=== PATIENT | male | born 1950 | race Caucasian/White ===

== ENCOUNTER 2018-05-04 06:10 | Inpatient (IN) ==
[2018-05-04] MEDS ORDERED: Albuterol 2.5 MG/3 ML NEBULIZER IH ONE (06:33)
[2018-05-04] MEDS ORDERED: CeFAZolin Syr 2,000MG/20 ML 2,000 MG/20 ML SYRINGE IVPB ONE (06:33)
[2018-05-04] MEDS ORDERED: Albuterol 2.5 MG/3 ML NEBULIZER ONE (06:37)
[2018-05-04] MEDS ORDERED: Ringers Solution, Lactated 1,000 ML IVC SCH (06:45)
[2018-05-04] MEDS ORDERED: *HR* FentaNYL (PF) 100 MCG/2 ML VIAL ONE ×2 (07:04→13:57)
[2018-05-04] MEDS ORDERED: *HR* Midazolam HCl 2 MG/2 ML VIAL ONE (07:04)
[2018-05-04] MEDS ORDERED: *HR* Rocuronium Bromide 50 MG/5 ML VIAL ONE (07:05)
[2018-05-04] MEDS ORDERED: *HR* Succinylcholine 200 MG/10 ML VIAL IVP ONE (07:05)
[2018-05-04] MEDS ORDERED: Lidocaine -MPF 2% 2 ML VIAL ONE (07:05)
[2018-05-04] MEDS ORDERED: *HR* Phenylephrine 10 MG/ML VIAL ONE (07:05)
[2018-05-04] MEDS ORDERED: *HR* EPINEPHrine 1 MG/ML AMPUL ONE ×2 (07:05→17:16)
[2018-05-04] MEDS ORDERED: *HR* Propofol 200 MG/20 ML VIAL IVP ONE (07:05)
[2018-05-04] MEDS ORDERED: Heparin 1,000 UNITS/500 mL 500 ML ONE (07:12)
[2018-05-04] MEDS ORDERED: LIDOCAINE 1% PF 2 ML AMPUL ONE (07:15)
[2018-05-04] MEDS ORDERED: Heparin 1,000 UNITS/500 mL 1,000 ML ONE (07:16)
[2018-05-04] MEDS ORDERED: *HR* Remifentanil 2 MG VIAL IVP ONE (07:17)
--- NOTE | 2018-05-04 07:25 | Anesthesia Evaluation PreOp ---
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 Other Medical History: Hepatic (elevated LFT's, alcohol abuse) Anesthesia History: No Prior Anesthetic Complications Alcohol Use: occasionally Drug use: none Medications and Allergies Cyanocobalamin (Vitamin B-12) [Vitamin B12] 1,000 mcg PO DAILY 03/26/18 [History] Folic Acid 1 mg PO DAILY 03/26/18 [History] Potassium Chloride [K-Tab ER] 20 meq PO DAILY 03/26/18 [History] Ergocalciferol (VITAMIN D2) [Vitamin D2] 50,000 unit PO WE 05/04/18 [History] Allergy/AdvReac Type Severity Reaction Status Date / Time Sulfa (Sulfonamide Allergy Rash Verified 05/04/18 07:08 Antibiotics) - Meds/Allergy Pre-op Review Medications Reviewed: Yes Allergies Reviewed: Yes Beta Blockers on Current Med List: No Anesthesia Results - Labs Laboratory Tests 04/14/18 04/14/18 04/14/18 13:58 13:58 13:58 WBC 7.3 Hgb 14.0 Hct 39.3 Plt Count 245 PT 9.9 INR 0.9 APTT 30.6 Sodium 134 L Potassium 3.9 Chloride 99 Carbon Dioxide 25 BUN 6 L Creatinine 0.98 Est GFR ( Amer) > 60 Est GFR (Non-Af Amer) > 60 BUN/Creatinine Ratio 6 Glucose 83 Calculated Osmolality 275 L - Imaging EKG: report reviewed, image reviewed (SINUS TACHYCARDIA WITH OCCASIONAL SUPRAVENTRICULAR PREMATURE COMPLEXES RIGHT ATRIAL ENLARGEMENT POSSIBLE LEFT ATRIAL ENLARGEMENT NONSPECIFIC ST ABNORMALITIES) Additional studies: TTE: Impressions: LVEF 55-60%. Mild concentric left ventricular hypertrophy. Moderate left ventricular diastolic dysfunction. Normal right ventricular structure and function. Unable to estimate RVSP due to lack of TR jet. No significant valvular dysfunction. Anesthesia Exam Last Vital Signs Temp 97.6 F 05/04/18 06:30 Pulse 67 05/04/18 06:30 Resp 18 05/04/18 06:55 BP 120/87 05/04/18 06:55 Pulse Ox 99 05/04/18 06:55 Weight: 46 kg NPO (# of Hours): > 8 hrs - HEENT Pupil (Motor): Pupils equal, EOMI Mallampati: II Teeth: Edentulous Denture Type: Upper: Complete, Lower: Complete Oral Opening: Greater than 3 - BULLET LUBRICANT MIXER LOC: Oriented - Cardiac Rhythm: Regular Murmur: None - Pulmonary Breath Sounds: bilateral Clear Respiratory Effort: Symmetrical Anesthesia Assess/Plan ASA Score: 3 Level of consciousness: Cooperative Anesthetic Plan: General Monitoring Plan: Standard Monitors, A-Line Recovery Plan: PACU
--- NOTE | 2018-05-04 07:35 | History & Physical Report ---
Date of Encounter: 05/04/18 Time of Encounter: 07:20 24 Hour HP Update - Instructions Instructions: If the History and Physical is less than 30 days old and was completed prior to A.M. admission and or procedure and has NOT been updated on calendar day of procedure please complete this update prior to performing procedure. - Update Patient reports changes in Medical Condition: No Changes in examination, assessment, or condition: No Changes in Medication: No Preop tests/diagnostics Reviewed: Yes Surgery Remains Indicated: Yes Consent for Planned Operative Procedure(s) Verified: Yes - Pre-Operative Checklist Preoperative Checklist Indicated: Yes Prophylactic Antibiotic Ordered: Yes Home Medications Include Beta Lorenzo: No Beta Lorenzo Taken Today (Day of Surgery): No Beta Lorenzo Taken Yesterday (Day Prior to Surgery): No Is VTE Prophylaxis Indicated?: Yes
[2018-05-04] MEDS ORDERED: ceFAZolin 1,000 MG, Sodium Chloride IRRigation 1,000 ML IR ONE (07:45)
[2018-05-04] MEDS ORDERED: Albumin Human 5% 25.0 GM/500 ML VIAL ONE ×2 (08:12→12:14)
--- NOTE | 2018-05-04 08:57 | Anesthesia Procedures ---
Date of Encounter: 05/04/18 Time of Encounter: 07:50 Procedures: Anesthesia - Nerve Block Allergies/Adv Reactions: Allergy/AdvReac Type Severity Reaction Status Date / Time Sulfa (Sulfonamide Allergy Rash Verified 05/04/18 07:08 Antibiotics) Sedation: Fentanyl (mcg): 50
--- NOTE | 2018-05-04 08:59 | Anesthesia Procedures ---
Date of Encounter: 05/04/18 Time of Encounter: 07:50 Procedures: Anesthesia - Arterial Line Consent obtained: verbal consent Time out performed: Yes Sedation: Versed (mg): 1 (as charted on anesthesia paperwork) Sedation: Fentanyl (mcg): 50 Local Anesthetic: Lidocaine 1% Size (Gauge): 20 Length (inches): 1 3/4 Technique Used: sterile prep, direct puncture technique Post-Procedure: line taped into place, dry sterile dressing placed Patient tolerated procedure: well, no complications Complications: none Site: Radial L Vitals: see anesthesia paperwork Comments: placed by Son VARGAS
[2018-05-04] MEDS ORDERED: Ondansetron 4 MG/2 ML VIAL IVP ONE (09:00)
[2018-05-04] MEDS ORDERED: *HR* OxyCODONE Immed Rel 5 MG TABLET PO PRN (09:00)
[2018-05-04] MEDS ORDERED: Dexamethasone 4 MG/ML VIAL ONE (09:01)
[2018-05-04] MEDS ORDERED: *HR* Heparin 5,000 UNIT/ML VIAL ONE (10:15)
[2018-05-04 12:10] LABS: ABG Base Excess -8 mEq/L (-2 to 3); ABG Chloride 104 mEq/L (98-107); ABG Glucose 86 mg/dL (60-95); ABG HCO3 20 mEq/L (21-27); ABG Ionized Calcium 1.18 mmol/L (1.15-1.35); ABG Oxygen Saturation 100 % (95-98); ABG PCO2 45 mmHg (35-45); ABG PH 7.24 pH Units (7.32-7.45); ABG PO2 217 mmHg (85-104); ABG TCO2 21 mEq/L (20-26)
[2018-05-04] MEDS ORDERED: *HR* PHENYLEPHRINE 1,000 MCG/10 ML SYRINGE IVP ONE (12:40)
--- NOTE | 2018-05-04 13:33 | Operative Note ---
Date of procedure: 05/04/18 Pre-op diagnosis: PAD/claudication Post-op diagnosis: same Procedure: left femoral-BK popliteal bypass with 6 mm PTFE Distaflo graft left common, external, and internal iliac artery thromboendarterectomy left common femoral, profunda, and SFA thromboendarterectomy Complications: 0 Anesthesia: GETA Surgeon: Shay Mcgill Co-Surgeon: Stu Olivarez Was there an client account assistant present: No Estimated blood loss (cc): 400 Specimen: 0 Condition: stable Disposition: PACU Procedure in Detail: History Dieter Lucero is a 68-year-old white male with multiple ongoing medical problems including alcohol and tobacco abuse as well as cachexia. He has severe left lower extremity occlusive disease with decreased ankle brachial index and severe lifestyle limiting claudication. An angiogram had been performed recently and unfortunately an endovascular approach was not feasible for this patient due to his diffuse disease. Therefore he now comes to the operating room and an attempt to perform direct arterial reconstruction for his occlusive disease. Procedure After informed consent was obtained the patient was taken to the operating room. General endotracheal anesthesia under arterial line pressure monitoring was done performed. The abdomen and pelvis both groins and the left lower extremity were then sterilely prepped and draped. A timeout protocol was observed. A 2 surgical approach was used for this procedure due to the patient's comorbid conditions. This was also done in an attempt to reduce the anesthesia time and intraoperative blood loss as well as to assist with complex intraoperative decision making. Dissections were then made beginning at the left groin and a second incision at the left below-knee popliteal area. Dissection of the groin revealed an occluded left common femoral artery that appeared distended and mildly discolored. It should be noted that the angiogram performed recently there was spontaneous flow through this area and so therefore the patient was now found to have had an acute to subacute thrombosis of the left femoral system. Dissection was made all the greater saphenous vein through interrupted incisions. The vein was found to be adequate in the thigh and knee but in the calf area the vessel had a trifurcation and was too small to be used. Therefore synthetic graft was necessary. Dissection of the [id number] popliteal artery revealed an area of plaque proximally but distally above the tibial bifurcation areas the vessel was soft and usable for anastomosis. A subsartorial tunnel was then created. Heparin was administered to the patient and a dose of 4000 units. As the distal anastomosis was being constructed through the left calf incision using 6-0 Prolene to anastomose the 6 mm PTFE Distaflo graft the common femoral artery was opened simultaneously. This revealed a complex plaque with acute and subacute thrombus as well as chronic atherosclerotic changes diffusely through the vessel. This extended into the common femoral and external iliac as well as the superficial femoral and profunda femoris artery. The artery was opened for the entire length of the common femoral artery with exposure up on into the external iliac artery and distally into the proximal aspect of the superficial femoral artery. A formal endarterectomy and thrombectomy was performed of the common femoral artery. A dense and calcific plaque was removed as well as the subacute thrombus. An endarterectomy was also performed of the proximal aspect of the superficial femoral artery. A 4 Czech Timothy catheter was passed through the superficial femoral artery. This vessel demonstrated chronic atherosclerotic material as well as subacute clot. Spontaneous bleeding was achieved through the superficial femoral artery. Attention was then directed to the profunda femoris artery. This vessel was then endarterectomized at its orifice and proximal area. Again very dense and thick calcific plaque was present. Once this was removed excellent retrograde bleeding was achieved. This was back flushed with heparinized saline and then reclamped. Attention was then directed to the proximal common femoral artery. The arteriotomy was extended and the endarterectomy was performed up into the external iliac artery. Again a large amount of atherosclerotic material and clot was found. A 4 Czech Timothy catheter was passed retrograde. A large amount of thick dense fresh clot was removed. Orbita catheter would not advance into the aorta and pulsatile flow was not achieved. Therefore further iliac surgery was necessary. A left flank or transplant incision was then made in order to expose the common iliac artery and iliac bifurcation. Dissection was carried down into the retroperitoneal space in order to identify the structure. The external iliac artery had no pulse told there was a pulse in the common iliac artery. There was a dense rim of calcific plaque in the distal common iliac artery with extension into the internal iliac and external iliac artery. After control was obtained of this left iliac system a direct arteriotomy was made on the distal common iliac artery and extending into the proximal external iliac artery. This would allow access to all 3 vessels including the internal iliac artery. A formal endarterectomy was then performed. Again this was a dense and thick calcific plaque present. The orifice of the internal iliac as well as the proximal portion of this artery was endarterectomized with backbleeding achieved. More fresh clot and atherosclerotic material was removed from the proximal left external iliac artery. Excellent pulsatile flow was achieved after endarterectomy through the left common iliac artery. As the vessel was relatively generous in size the arteriotomy was closed with a direct longitudinal closure and no patch was necessary. With this done the wound was packed and the clamps were removed into the distal aspect of the external iliac so that pulsatile flow could be restored into the epigastric area and into the internal iliac artery on the left side. With this done the proximal anastomosis of the femoral popliteal bypass graft was performed over a very long area of the endarterectomized common femoral artery. The synthetic graft was used as the patch was sewn into position in an end-to-side fashion using 6-0 Prolene suture. After appropriate backbleeding and flushing the grafts were opened sequentially. There opened first into the internal iliac artery and then into the profunda femoris artery and then into the popliteal artery. Patient had significant amount of oozing due to the endarterectomy sites and but this was controlled with additional sutures and topical agents. Excellent pulsatile flow was achieved from the iliac system into the femoral-popliteal bypass graft and then into the [id number] popliteal artery. Doppler signals were identified at the dorsalis pedis and posterior tibial artery at the left ankle. All wounds were then irrigated and hemostasis was achieved. The wounds were then closed in layers using absorbable suture after infiltration with Marcaine. All the vein harvest sites were also closed and it should be noted that the greater saphenous vein was not harvested or ligated during this procedure. Dry sterile dressings were then applied. The patient was extubated in the operating room. He received 1 unit of blood intraoperatively. He was taken from the operating room to the recovery room in stable condition. There were no intraoperative complications.
[2018-05-04] MEDS: *HR* Morphine 2 MG/ML SYRINGE IVP PRN ×3 (14:18→14:38)
[2018-05-04] MEDS ORDERED: *HR* HYDROmorphone (PF) 1 MG/ML SYRINGE IVP PRN (14:55)
[2018-05-04 16:10] LABS: Hematocrit 30.8 % (37.5-50.1); Hemoglobin 10.9 g/dL (12.9-16.9)
--- NOTE | 2018-05-04 16:33 | Anesthesia Evaluation Post Op ---
Date of Encounter: 05/04/18 Time of Encounter: 16:33 - Vital Signs Vital Signs: Last Vital Signs Temp 98.6 F 05/04/18 15:45 Pulse 72 05/04/18 16:05 Resp 16 05/04/18 16:05 BP 115/85 05/04/18 16:05 Pulse Ox 98 05/04/18 16:05 - Lungs Lungs: Clear Ascult./Percussion - Airway Airway: Non-obstructed - Cardiovascular Regular Rate - Mental Status Mental Status: Alert & Oriented, Answers Appropriately - Pain Pain Scale: 4 - Nausea Vomiting Nausea Vomiting: Not Present - Hydration Hydration: NPO - Discharge PostOp Status: Transfer Patient to floor
[2018-05-04] MEDS ORDERED: Naloxone 0.4 MG/ML INJ IVP PRN (16:42)
[2018-05-04] MEDS ORDERED: Ondansetron 4 MG/2 ML VIAL IVP PRN (16:42)
[2018-05-04] MEDS ORDERED: Acetaminophen 325 MG TABLET PO PRN (16:42)
[2018-05-04] MEDS: *HR* HYDROcodone/Acet 5/325 mg TABLET PO PRN (18:20)
[2018-05-04 18:25] LABS: Hematocrit 33.4 % (37.5-50.1); Hemoglobin 11.5 g/dL (12.9-16.9)
[2018-05-05 05:57] LABS: Basophils % 0.2 %; Hematocrit 28.8 % (37.5-50.1); Hemoglobin 10.2 g/dL (12.9-16.9); Immature Granulocytes % 0.4 % (0-4); Lymphocytes # 1.3 K/mcL (0.6-4.6); Lymphocytes % 15.4 %; Mean Corpuscular HGB Conc 35.4 g/dL (31.6-35.5); Mean Corpuscular Hemoglobin 33.2 pg (28.0-33.3); Mean Platelet Volume 10.5 fL (9.4-12.4); Monocytes # 0.8 K/mcL (0.0-1.3); Monocytes % 9.4 %; Neutrophils # 6.4 K/mcL (1.6-8.9); Platelet Count 120 K/mcL (140-400); Red Blood Count 3.07 M/mcL (4.19-5.50); Segmented Neutrophils % 74.6 %
[2018-05-05 06:08] LABS: Mean Corpuscular Volume 93.8 fL (83.0-100.0)
[2018-05-05 06:14] LABS: BUN/Creatinine Ratio 11 (6-26); Blood Urea Nitrogen 9 mg/dL (8-23); Calcium 8.8 mg/dL (8.6-10.3); Carbon Dioxide 25 mEq/L (23-29); Chloride 101 mEq/L (98-107); Glucose 119 mg/dL (70-105); Osmolality,Calculated 274 (280-300); Potassium 3.9 mEq/L (3.5-5.1); Sodium 132 mEq/L (136-145); eGFR For Non-African Americans > 60 (> 60)
--- NOTE | 2018-05-05 07:09 | Operative Note ---
Date of procedure: 05/04/18 Pre-op diagnosis: Peripheral vascular disease with disabling claudication Post-op diagnosis: same Procedure: 1. Left common femoral to below knee popliteal artery bypass with 6mm Distaflo PTFE graft. 2. Left common, external and internal iliac artery thromboendarterectomy. 3. Left common, deep and superficial femoral endarterectomy. 4. Left popliteal endarterectomy. Complications: None Anesthesia: GETA Surgeon: Stu Olivarez Co-Surgeon: Shay Mcgill Was there an nutritional assistant present: No Estimated blood loss (cc): 400 Specimen: None Condition: stable Disposition: PACU Procedure in Detail: Indications: The patient is a 68-year-old male who was found to have peripheral vascular disease with disabling claudication. He was found to have a left superficial femoral artery occlusion. Procedure: The patient was identified in the preoperative area. The risks, benefits, and alternatives of the procedure were discussed. All questions were answered. The patient was taken to the operating room and placed in supine position on the operating room table. After the induction of general endotracheal anesthesia, he was cleaned and draped in normal sterile fashion. A two surgeon approach was utilized for this procedure in order to minimize anesthetic time and the risks for complications due to the patients comorbid conditions. In addition, a two surgeon approach was used for intraoperative decision making. An oblique incision was made over the left groin sharply. Hemostasis was obtained with electrocautery. Through a process of blunt, sharp, and electrocautery dissection, the left femoral vessels were dissected circumferentially and surrounded with vessel loops. An incision was made on the left medial calf sharply. Hemostasis was obtained with electrocautery. Through a process of blunt, sharp, and electrocautery dissection, the left below-knee popliteal artery was dissected proximally and distally and surrounded with vessel loops. Multiple skin incisions were made along the thigh between the two incisions along the saphenous vein. The vein was noted to have multiple branches and was small in caliber distally. The vein was determined to be inadequate for bypass. A 6 mm ring reinforced Distaflo PTFE graft was selected for bypass. A graft was tunneled between the popliteal and femoral incisions. The patient received 5000 units of heparin intravenously. Additional heparin was given throughout the case to maintain adequate anticoagulation. The popliteal vessels were occluded and a longitudinal arteriotomy was made in the popliteal artery. The distal end of the graft was sutured in place with a running 6-0 Prolene, but not tied. Heparinized saline was infused into the lumen. Tenision was applied to the femoral vessel loops. An arteriotomy was made in the common femoral artery and the graft was cut to fit the defect. The graft was anastamosed with a running 6-0 Prolene. The vessels were flushed through the graft and heparin was infused into the lumen. The graft was clamped with an atraumatic clamp. Thrombin and gelfoam were used at the proximal anastamosis. The distal arterial anastomosis suture line was completed. Prior to completing the closure, the popliteal vessels were flushed and reoccluded. Heparinized saline was infused into the lumen. The anastamosis was tied and then flow was restored. Polyphasic signals were noted distal to the distal anastomosis as well as at the posterior tibial artery. Wounds were irrigated with antibiotic-containing saline. Thrombin and gelfoam were used to aid in hemostasis. Meticulous hemostasis was obtained throughout the wound with electrocautery. Wounds were reapproximated with layers of 2-0 and 3-0 Vicryl. Skin was reapproximated with 4-0 Vicryl. Sterile dressing was applied. The patient was extubated and taken to recovery room in stable condition.
[2018-05-05] MEDS: *HR* HYDROcodone/Acet 5/325 mg TABLET PO PRN ×2 (07:31→16:00)
[2018-05-05] MEDS: Folic Acid 1 MG TABLET PO SCH (08:16)
[2018-05-05] MEDS: Cyanocobalamin (B-12) 1,000 MCG TABLET PO SCH (08:16)
--- NOTE | 2018-05-05 09:46 | Discharge Summary ---
Date of Encounter: 05/06/18 Time of Encounter: 10:26 - Discharge Diagnosis (1) PAD (peripheral artery disease) Priority: Primary Status: Acute Comments: Severe left lower extremity arterial disease with diffuse iliofemoral ather osclerosis and thrombosis. (2) Tobacco abuse Priority: Secondary Status: Chronic Comments: Chronic tobacco abuse (3) Alcohol abuse Priority: Secondary Status: Chronic Comments: Chronic alcohol abuse (4) Protein calorie malnutrition Priority: Secondary Status: Chronic Comments: Chronic and severe malnutrition and weight loss Qualifiers: Protein-calorie malnutrition severity: severe Qualified Code(s): E43 - Unspecified severe protein-calorie malnutrition - Hospital Course Hospital course: Mr. Lucero is a 68 year old male With severe peripheral vascular occlusive disease. The patient has multiple other chronic ongoing medical problems that include tobacco abuse, alcohol abuse, and severe protein calorie malnutrition. Angiographically he was found to have severe and diffuse disease. From the time of his antrum to the time of his operation he went on to thrombose his left iliac system and common femoral artery. This led to an extended and complicated surgery on [id number]. The patient required a left common iliac, internal iliac, and external iliac thromboendarterectomy as well as a left common femoral, left profunda femoris, and left superficial femoral artery thromboendarterectomy, and a left femoral to below the knee popliteal artery bypass graft with 6 mm PTFE. The patient's greater saphenous vein was found to be inadequate at the distal reaches of the calf area so that the vein was inadequate to use as a conduit. The patient tolerated the procedure well. He required 1 unit of blood transfusion. He was hemodynamically stable. The left foot became warm and pink. Excellent Doppler signals that are triphasic at the dorsalis pedis and posterior tibial level. The foot itself was dramatically improved in regards to its color and temperature from the baseline evaluation and as compared to the right foot. The patient complained of significant discomfort in the leg on weightbearing which required an additional day in the hospital. Due to his overall medical condition he will require further assistance at home and we will arrange for outpatient physical therapy as well as a walker. The patient was given instructions in regards to his diet and medications and activities as well as wound care. It was emphasized to him that he needs to walk on a regular basis at home. He is initially to use his walker and then to graduate back to his cane which he was using prior to his operation. Also due to his protein calorie malnutrition he was recommended to use and sure for nutritional supplement and he will also be given a prescription for Megace 400 mg a day to help stimulate his appetite. Finally he will be given a prescription for [place] for postoperative pain management. All questions were answered prior to his discharge. Time spent discussing smoking cessation with patient: 3 to 10 minutes - Time Spent with Patient Total time spent providing and/or coordinating discharge services: - Discharge Medications Prescriptions: HYDROcodone/Acet 5/325 mg [[place] 5-325 mg] 1 tab PO Q6HR PRN 7 Days #10 tablet PRN Reason: Moderate Pain Megestrol Acetate [Megace] 400 mg PO DAILY #30 udc Home Medications: Cyanocobalamin (Vitamin B-12) [Vitamin B12] 1,000 mcg PO DAILY 03/26/18 [History] Folic Acid 1 mg PO DAILY 03/26/18 [History] Potassium Chloride [K-Tab ER] 20 meq PO DAILY 03/26/18 [History] Ergocalciferol (VITAMIN D2) [Vitamin D2] 50,000 unit PO WE 05/04/18 [History] HYDROcodone/Acet 5/325 mg [[place] 5-325 mg] 1 tab PO Q6HR PRN 7 Days #10 tablet 05/06/18 [Rx] Megestrol Acetate [Megace] 400 mg PO DAILY #30 udc 05/06/18 [Rx] Allergies/Adverse Reactions: Allergy/AdvReac Type Severity Reaction Status Date / Time Sulfa (Sulfonamide Allergy Rash Verified 05/04/18 07:08 Antibiotics) Date of admission: 05/04/18 16:53 Primary care physician: Yamini Harrison MD Consults: 05/04/18 17:25 Consult to Nutrition [CONS] Routine Comment: Consulting Provider: NUTRITION Reason for Dietary Consult: PO Supplementation Diet Education Procedure(s) Performed: Extensive Left iliac and femoral endarterectomy/thrombectomy Left femoral to [id number] popliteal artery bypass graft with PTFE Discharging clinician: Shay Mcgill Anticipated date of discharge: 05/06/18 Exam Vital Signs, Last 4 Hours Temp Pulse Resp BP Pulse Ox 05/05/18 07:34 97.8 F 75 18 118/82 97 General: Present: Conversant, No Apparent Distress HEENT: Present: Atraumatic Neck: Absent: JVD Cardiac: Present: Reg Rate and Rhythm Neuro: Present: Alert and responsive, No focal deficits noted, Cranial nerves grossly intact Abdomen: Present: Soft Vascular: Present: Color/Temperature (Color and temperature of left foot is improved following bypass grafting.), Surgical incisions (Surgical incisions are clean and dry.), Other (Patient has Doppler signals at the dorsalis pedis and posterior tibial artery at the left ankle following surgery.) Skin: Present: No rashes noted on visualized skin - Patient Status Disposition: Home Health Service Condition: Fair Functional capacity at discharge: uses cane/walker Overall status at discharge: patient is not back to baseline - Discharge Instructions Follow Up With: Yamini Harrison MD [Primary Care Provider] - 05/11/18 11:00 am Shay Mcgill MD [Partnered Physician] - 05/24/18 8:45 am Additional Instructions: Keep surgical sites dry for total of 5 days following surgery Patient may ambulate inside and outside. Patient may use stairs as tolerated. Use walker as needed and then progressed to the use of cane. No driving. Resume usual home medications. Begin Megace 400 mg a day to help stimulate appetite Supplement meals with Ensure Elevate left lower extremity while seated. Using incentive spirometer 10 times an hour while awake for the next 2 weeks then discard the spirometer. Remove dressing from left lower extremity on Thursday. - Diet and Activity Activity: increase activity as tolerated Diet: other (High-protein diet with ensure supplements)
[2018-05-05] MEDS: Megestrol Acetate 400 MG/10 ML UDC PO SCH (14:18)
--- NOTE | 2018-05-05 16:58 | Vascular/Endovas Progress Note ---
Date of Encounter: 05/05/18 Time of Encounter: 16:55 - Assessment and plan (1) PAD (peripheral artery disease) Current Visit: Yes Status: Acute Patent left lower extremity endarterectomies and thrombectomies and bypass graft. Dramatic improvement of perfusion of left lower extremity. Patient will need extra time for mobilization. He is clearly not ready to be discharged today. Therefore we'll continue with supportive therapy including physical and occupational therapy as well as nutritional consultation. Possible discharge tomorrow pending his improvement with weightbearing and ambulation. Patient is hemodynamically stable. (2) Tobacco abuse Current Visit: Yes Status: Chronic History of chronic tobacco abuse. (3) Alcohol abuse Current Visit: Yes Status: Chronic (4) Protein calorie malnutrition Current Visit: Yes Status: Chronic Patient seen in consultation with nutritional therapy today. Recommendations made made. Will start Megace today to help stimulate appetite. Qualifiers: Protein-calorie malnutrition severity: severe Qualified Code(s): E43 - Unspecified severe protein-calorie malnutrition - Subjective Interval history: Patient is postoperative day 1 from an extensive iliac and femoral endarterectomy and thrombectomy and a left femoral to [id number] popliteal artery bypass graft with 6 mm PTFE. The patient complains of pain in the surgical sites. He has had difficulties with weight bearing today and has not been able to do any walking. He was seen by nutrition in consultation for his protein calorie malnutrition which is a chronic problem for him. Vital Signs, Last 4 Hours Temp Pulse Resp BP 05/05/18 16:11 98.2 F 82 18 108/81 - Physical Examination General: Present: Conversant, No Apparent Distress HEENT: Present: Atraumatic, Other (Facial and neck muscle wasting) Neck: Absent: JVD Cardiac: Present: Reg Rate and Rhythm, Normal S1 and S2 Lungs: Present: Normal Breath Sounds Neuro: Present: Alert and responsive, No focal deficits noted Vascular: Present: Color/Temperature (Left foot is warm and pink.), Surgical incisions (Dry dressings cover left sided surgical incisions.), Other (Excellent Doppler signals over the left dorsalis pedis and posterior tibial artery.). Absent: Edema Abdomen: Present: Soft, Non-tender Skin: Present: No rashes noted on visualized skin Results 05/05/18 05:40 05/05/18 05:40 Lab Results, Last 24 hours 05/04/18 05/05/18 05/05/18 17:51 05:40 05:40 WBC 8.5 Hgb 11.5 L 10.2 L Hct 33.4 L 28.8 L Plt Count 120 L Sodium 132 L Potassium 3.9 Chloride 101 Carbon Dioxide 25 BUN 9 Creatinine 0.81 Glucose 119 H Calcium 8.8 Consult Discharge Plan - Plan Additional Instructions: Keep surgical sites dry for total of 5 days following surgery Patient may ambulate inside and outside. Patient may use stairs as tolerated. Normal [place]. Resume usual home medications. Elevate left lower extremity while seated. Using incentive spirometer 10 times an hour while awake for the next 2 weeks then discard the spirometer. Referrals: Yamini Harrison MD [Primary Care Provider] - 05/11/18 11:00 am Shay Mcgill MD [Partnered Physician] - 05/26/18 9:45 am
[2018-05-06] MEDS: *HR* HYDROcodone/Acet 5/325 mg TABLET PO PRN (00:25)
[2018-05-06] MEDS: Megestrol Acetate 400 MG/10 ML UDC PO SCH (07:30)
[2018-05-06] MEDS: Folic Acid 1 MG TABLET PO SCH (07:30)
[2018-05-06] MEDS: Cyanocobalamin (B-12) 1,000 MCG TABLET PO SCH (07:30)
--- NOTE | 2018-05-06 10:51 | Physician Discharge Referral ---
Home Health/Hosp Referral Info Transfer to: Home Health Attending Provider: Dr. Mcgill Provider in Charge Post Discharge: PCP - Diagnosis (1) PAD (peripheral artery disease) Priority: Primary Status: Acute (2) Tobacco abuse Priority: Secondary Status: Chronic (3) Alcohol abuse Priority: Secondary Status: Chronic (4) Protein calorie malnutrition Priority: Secondary Status: Chronic - Respiratory Orders Smoking Cessation: Smoking cessation has been advised. For more information, call the [place] Tobacco Quit Line at 2-364-IFUY-NOW. - Diet/Nutrition Diet/Nutrition Orders: Regular - Activity Activity Orders: Up ad jimenez, Ambulate, Walker - Services Needed Following services are medically necessary services: Physical Therapy - Transfer Medications Prescriptions: HYDROcodone/Acet 5/325 mg [Pep 5-325 mg] 1 tab PO Q6HR PRN 7 Days #10 tablet PRN Reason: Moderate Pain Megestrol Acetate [Megace] 400 mg PO DAILY #30 udc Home Medications: Cyanocobalamin (Vitamin B-12) [Vitamin B12] 1,000 mcg PO DAILY 03/26/18 [History] Folic Acid 1 mg PO DAILY 03/26/18 [History] Potassium Chloride [K-Tab ER] 20 meq PO DAILY 03/26/18 [History] Ergocalciferol (VITAMIN D2) [Vitamin D2] 50,000 unit PO WE 05/04/18 [History] HYDROcodone/Acet 5/325 mg [Pep 5-325 mg] 1 tab PO Q6HR PRN 7 Days #10 tablet 05/06/18 [Rx] Megestrol Acetate [Megace] 400 mg PO DAILY #30 udc 05/06/18 [Rx] Allergies/Adverse Reactions: Allergy/AdvReac Type Severity Reaction Status Date / Time Sulfa (Sulfonamide Allergy Rash Verified 05/04/18 07:08 Antibiotics) Certification: Further, I certify that my clinical findings support that this patient is homebound (i.e. absences from home require considerable and taxing effort and are for medical reasons or quaker services or infrequently or short duration when for other reasons) because: Homebound Reason: Patient requires assistance of a person or device to safely l eave home, Post-surgery restriction and or conditions limit ability to leave home, Leaving home requires considerable and taxing effort due to condition, Severity of cardiac or pulmonary status limits activity tolerance Attestation: My signature below is to certify that this patient is under my care and that I, or nurse practitioner, or a physician's home based assistant working with me, has a jusm-es-gvum encounter with this patient.
[2018-05-06 15:46] VITALS: BP 118/86
== END 2018-05-06 16:10 | disposition home health service (06) | DRG 270 ==
LOC: SAMDAY 06:10 → 2NNU 16:53
PROVIDERS: ADMIT Surgery Vascular Surgery; ATTEND Surgery Vascular Surgery

== ENCOUNTER 2018-07-16 18:28 | Observation (INO) ==
[2018-07-17] MEDS ORDERED: Naloxone 0.4 MG/ML INJ IVP PRN (02:29)
[2018-07-17] MEDS ORDERED: Isovue-370 500 ML BOTTLE IVP ONE (02:32)
--- NOTE | 2018-07-17 03:32 | Internal Med History&Physical ---
<Rodolfo Albarran P - Last Filed: 07/17/18 02:44> Date of Encounter: 07/17/18 Time of Encounter: 01:30 Internal Medicine - H&P: HPI Chief complaint: Left Greater Trochanter Fracture Admitted From: Hospital to Hospital Transfer Plans for Post Hospital Care: Transfer [facility] History of present illness: Mr. 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 CT also demonstrated degenerative changes to both hips, SI joints, and lower lumbar spine. Hip CT was obtained after abnormal finding on left hip xray that was ordered by nursing facility provider because of patient complaining of left hip pain according to the sending ER provider. However the patient denies any history of left hip pain. Patient only complains of pain to nodule around left knee that has been present since femoral popliteal bypass in April 2018 and has not changed in size, shape, or character. Denies any known injury to left hip and continues to ambulate without difficulty and work with physical therapy at nursing facility with last session being completed yesterday. Denies headache, chest pain, shortness of breath, abdominal pain, bowel or bladder changes, numbness, tingling, fever, cough, or chills. Patient has been in nursing facility for rehab since hospital discharge in June 2018 for anemia, hypokalemia, hypomagnesemia, cdiff diarrhea with positive PCR but negative toxin. Patient has finished oral vancomycin regimen for same and denies any more episodes of diarrhea. Hypokalemia and hypomagnesemia have resolved however anemia persists. Had negative endoscopy but refused colonoscopy. Sending ER provider also obtained chest xray in anticipation of surgery, which showed right lung mass or pleural fluid and recommended a chest CT for further inspection. Follows regularly with PCP however has not seen since being in nursing facility as he has been seeing a provider at the facility. History review shows alcohol abuse but patient denies history of abuse or any current use. Patient states he has a living will that we should have on file, informed patient that we do not, is agreeable to being full code at this time which is what nursing facility had on file as well. Past Med Surg Social Fam HX - Past Medical History Medical history: arthritis, DVT, hyperlipidemia, peripheral artery disease Additional medical history: SMOKER, ETOH, PVD, hemochromatosis with heterozygous mutation of C282Y gene Psychiatric history: no psych history - Past Surgical History Surgical History: no surgical history Additional surgical history: TONSILLECTOMY. RIGHT INGUINAL HERNIA - Social History Smoking Status: Current every day smoker Smokeless Tobacco Status: No Alcohol use: none Drug use: none Internal Medicine - H&P: Meds Cyanocobalamin (Vitamin B-12) [Vitamin B12] 1,000 mcg PO DAILY 03/26/18 [History] Folic Acid 1 mg PO DAILY 03/26/18 [History] Ergocalciferol (VITAMIN D2) [Vitamin D2] 50,000 unit PO WE 05/04/18 [History] Ferrous Sulfate 325 mg PO BIDWM tablet 06/26/18 [Rx] Ipratropium/Albuterol Neb [Duoneb] 3 ml IH [id number] PRN inhsol 06/26/18 [Rx] Magnesium Oxide [Mag-Ox] 800 mg PO BID tablet 06/26/18 [Rx] Omeprazole [PriLOSEC] 40 mg PO DAILY@0630 capsule. 06/26/18 [Rx] Potassium Chloride Elixir [Potassium Chloride] 40 meq PO BID udc 06/26/18 [Rx] Vancomycin HCl 125 mg PO QID 07/16/18 [History] Allergy/AdvReac Type Severity Reaction Status Date / Time No Known Allergies Allergy Verified 07/16/18 22:36 All Systems PM: A 10-system review of systems was performed and is negative for pertinent findings except as documented above in the HPI. - Constitutional Vitals: Temp Pulse Resp BP Pulse Ox 98.6 F 75 16 161/90 98 07/16/18 23:15 07/16/18 23:15 07/16/18 23:15 07/16/18 23:15 07/16/18 23:15 Exam: General: Alert and oriented Skin:Normal color, no rash. Chronic nodule around left knee reportedly present since femoral popliteal bypass surgery. HEENT:Pupils equal, round and reactive. Cardiovascular:Normal S1 & S2, no rubs, murmurs or gallops. No JVD. Pulse regular. Lungs:Breath sounds decreased, no wheezes or crackles. Abdomen:Soft, non-tender, no rigidity. Extremities:No deformity, no edema or tenderness, no joint swelling or clubbing. Distal PMS intact. Neurological:Normal cognition and motor skills. Pulses:Carotid and radial pulses normal +2. Rest of the physical exam is non contributory. - Assessment and plan (1) Greater trochanter fracture Current Visit: Yes Status: Acute Assessment and plan: No history of trauma, suspecting pathologic fracture, suggest bone biopsy. Sending ER spoke with ortho national facilities manager Dr Tovar who agreed to see patient. NPO. Pain control with PRN pain medication. Qualifiers: Encounter type: initial encounter Fracture type: closed Fracture alignment: displaced Laterality: left Qualified Code(s): S72.112A - Displaced fracture of greater trochanter of left femur, initial encounter for closed fracture (2) Skin nodule Current Visit: Yes Status: Chronic Assessment and plan: Nodule present since April 2018 following femoral popliteal bypass surgery. Has not changed in size, shape, or character however patient complains of pain at site. Vascular consult ordered. (3) Abnormal chest xray Current Visit: Yes Status: Acute Assessment and plan: Chest xray shows right lung mass or pleural fluid and recommends chest CT. New finding since January [address] ordered. (4) Decreased hemoglobin Current Visit: Yes Status: Chronic Assessment and plan: Anemia of unknown etiology since June 2018, currently near same level. Repeat labs ordered. (5) Tobacco abuse Current Visit: Yes Status: Chronic Assessment and plan: Cessation encouraged. Nicotine patch refused. - Time Spent With Patient Total time spent is greater than 50% in coordination of care (as documented) at patient's floor/unit and/or counseling patient: <Tru Pham - Last Filed: 07/17/18 06:09> Date of Encounter: 07/17/18 Time of Encounter: 03:40 - Constitutional Constitutional: no chills, no fever(s) - EENT Eyes: no blurry vision, no change in vision Nose, mouth and throat: no sore throat - Cardiovascular Cardiovascular ROS IM: no chest pain, no dyspnea, no dyspnea on exertion - Respiratory Respiratory: no cough, no dyspnea - Gastrointestinal Gastrointestinal: no abdominal pain - Genitourinary Genitourinary ROS male: no dysuria, no flank pain - Musculoskeletal Musculoskeletal ROS IM: arthralgias, limited range of motion, no joint swelling - Integumentary Integumentary IM: no rash, no jaundice - Neurological Neurological ROS: no focal weakness, no frequent falls - Psychiatric Psychiatric: no anxiety, no hallucinations - Endocrine Endocrine IM: no polydipsia, no polyuria - Allergic/Immunologic Allergic/Immunologic: no GI upset with certain foods - Constitutional Vitals: Temp Pulse Resp BP Pulse Ox 98.6 F 77 17 158/85 97 07/17/18 04:02 07/17/18 04:02 07/17/18 04:02 07/17/18 04:02 07/17/18 04:02 General appearance: Present: A&O X 3 - Head Head exam: Present: normal inspection - Eye Eye exam: Present: EOMI, PERRL. Absent: scleral icterus Pupils: Present: normal accommodation - ENT ENT exam: Present: mucous membranes dry, normal exam, normal oropharynx - Neck Neck exam general surgery: Present: full ROM, supple. Absent: tenderness, nuchal rigidity, thyromegaly - Respiratory Respiratory exam: Present: prolonged expiratory phase, rhonchi, wheezes. Absent: accessory muscle use, chest wall tenderness, respiratory distress, tachypnea - Cardiovascular Cardiovascular exam: Present: distant heart sounds, RRR, +S1, +S2. Absent: diastolic murmur, systolic murmur - GI/Abdominal GI/Abdominal exam: Present: normal bowel sounds, soft. Absent: tenderness - Extremities Exam Extremities exam: Present: warm, radial pulses palpable and symmetrical. Absent: pedal edema, tenderness Additional comments: palpable lipomatous type nodule along left lower inner thigh by his vascular surgery site. - Back Exam Back exam: Absent: CVA tenderness (L), CVA tenderness (R) - Neurological Exam Neurological exam: Present: alert, CN II-XII intact, oriented X3, no focal deficits, strengths equal and symetr throughout - Psychiatric Psychiatric exam: Present: normal affect, normal mood - Skin Skin exam: Present: dry, intact, warm Internal Med - H&P Results - Labs CBC & Chem 7: 07/17/18 03:30 07/17/18 03:30 Labs: Short CBC 07/17/18 Range/Units 03:30 WBC 6.8 (4.3-11.1) K/mcL Hgb 8.4 L (12.9-16.9) g/dL Hct 25.4 L (37.5-50.1) % Plt Count 267 (140-400) K/mcL Neutrophils # 4.1 (1.6-8.9) K/mcL BMP 07/17/18 03:30 Sodium 138 Potassium 4.1 Chloride 103 Carbon Dioxide 28 BUN 14 Creatinine 0.93 Glucose 100 Calcium 9.3 - Assessment and plan (1) Skin nodule Current Visit: Yes Status: Chronic (2) Greater trochanter fracture Current Visit: Yes Status: Acute Qualifiers: Encounter type: initial encounter Fracture type: closed Fracture alignment: displaced Laterality: left Qualified Code(s): S72.112A - Displaced fracture of greater trochanter of left femur, initial encounter for closed fracture (3) Abnormal chest xray Current Visit: Yes Status: Acute (4) Decreased hemoglobin Current Visit: Yes Status: Chronic (5) Tobacco abuse Current Visit: Yes Status: Chronic - Time Spent With Patient Total time spent is greater than 50% in coordination of care (as documented) at patient's floor/unit and/or counseling patient: - Attending Attestation I discussed the patient SANTO DOMINGO, past medical history, review of systems, lab data, imaging findings, and exam findings with Manfred Albarran CNP. I reviewed his x-ray personally and noted the area of concern. I then went and saw patient independently as well. Patient denies any fall or trauma to his hip. He denies any pain in his hip. He's been having pain on his left knee, which certainly c an be referred pain from his hip. Given his smoking history and finding on chest x-ray, I am concerned that he has lung cancer and that this hip fracture may be pathologic. Unfortunately, patient would not cooperate with history and exam and kept fixating on his left leg lipomatous nodule. I tried to question him further about his smoking, new chest x-ray finding, and the possibility of his hip being a pathologic fracture. He was very upset that he is here and does not feel he needs any surgical intervention. I recommended he stay at least until he is seen by orthopedics and vascular surgery. Additionally, we will proceed with CT of the chest to further evaluate his chest x-ray findings. I am concerned he has new lung cancer and that his hip fracture may be secondary to bone involvement and likely pathologic in nature. Other than my comments above noted exam findings, I agree with Manfred's assessment and plan.
[2018-07-17 03:52] LABS: Basophils # 0.1 K/mcL (0.0-0.2); Basophils % 0.9 %; Eosinophils # 0.3 K/mcL (0.0-0.6); Eosinophils % 3.8 %; Hematocrit 25.4 % (37.5-50.1); Hemoglobin 8.4 g/dL (12.9-16.9); Immature Granulocytes % 0.4 % (0-4); Lymphocytes # 1.6 K/mcL (0.6-4.6); Lymphocytes % 22.7 %; Mean Corpuscular HGB Conc 33.1 g/dL (31.6-35.5); Mean Corpuscular Hemoglobin 32.2 pg (28.0-33.3); Mean Corpuscular Volume 97.3 fL (83.0-100.0); Mean Platelet Volume 9.4 fL (9.4-12.4); Monocytes # 0.8 K/mcL (0.0-1.3); Monocytes % 12.2 %; Neutrophils # 4.1 K/mcL (1.6-8.9); Platelet Count 267 K/mcL (140-400); Red Blood Count 2.61 M/mcL (4.19-5.50); Red Cell Distribution Width 14.6 % (11.5-14.5)
[2018-07-17 04:07] LABS: BUN/Creatinine Ratio 15 (6-26); Blood Urea Nitrogen 14 mg/dL (8-23); Calcium 9.3 mg/dL (8.6-10.3); Carbon Dioxide 28 mEq/L (23-29); Chloride 103 mEq/L (98-107); Glucose 100 mg/dL (70-105); Osmolality,Calculated 287 (280-300); Potassium 4.1 mEq/L (3.5-5.1); Sodium 138 mEq/L (136-145); eGFR For Non-African Americans > 60 (> 60)
[2018-07-17] MEDS ORDERED: Ketorolac 15 MG/ML VIAL IVP PRN (04:42)
--- NOTE | 2018-07-17 06:41 | Orthopedics Progress Note ---
Date of Encounter: 07/17/18 Time of Encounter: 06:40 Subjective Interval history: Patient seen this morning CT scan reviewed shows a comminuted fracture greater trochanter. This is a nonoperative fracture, recommendation is weightbearing as tolerated with walker cleared for discharge when stable Objective Vital signs: Vital Signs Temp Pulse Resp BP Pulse Ox 07/17/18 04:02 98.6 F 77 17 158/85 97 07/16/18 23:15 98.6 F 75 16 161/90 98 07/16/18 21:49 98.1 F 87 18 137/86 97 Intake and Output 07/16/18 07/16/18 07/17/18 15:59 23:59 07:59 Intake Total 0 / 0 Output Total 0 / 0 Balance 0 / 0 Intake: Oral 0 / 0 Output: Urine 0 / 0 Other: # Voids 1 Weight 57.8 kg - Labs CBC & BMP: 07/17/18 03:30 07/17/18 03:30 Labs: Abnormal lab results RBC 2.61 M/mcL (4.19-5.50) L 07/17/18 03:30 Hgb 8.4 g/dL (12.9-16.9) L 07/17/18 03:30 Hct 25.4 % (37.5-50.1) L 07/17/18 03:30 RDW 14.6 % (11.5-14.5) H 07/17/18 03:30 Consult Discharge Plan - Plan Referrals: Yamini Harrison MD [Primary Care Provider] -
--- NOTE | 2018-07-17 11:18 | Event Note ---
Date of Encounter: 07/17/18 Time of Encounter: 11:15 Please full H&P by my colleague from earlier today for details. left knee shooting pain at times, no hip pain patient is asking about left knee subcutaneous mass which appeared after prior knee surgery, he has discussed this with surgeon, I advised him to follow up with the surgeon again if he has concerns Ortho appreciated: non-op management for hip fracture. WBAT with walker. CT scan of chest is pending to follow up on abnormal CXR findings, he is willing to wait at the moment, but is eager to return to rehab facility No AM labs indicated
[2018-07-17 11:31] VITALS: BP 153/96
[2018-07-17] MEDS ORDERED: Ipratropium/Albuterol Neb 3 ML IH PRN (11:45)
[2018-07-17] MEDS ORDERED: Cyanocobalamin (B-12) 1,000 MCG TABLET PO SCH (11:45)
[2018-07-17] MEDS ORDERED: Magnesium Oxide 400 MG TABLET PO SCH (12:00)
[2018-07-17] MEDS ORDERED: Folic Acid 1 MG TABLET PO SCH (12:00)
--- NOTE | 2018-07-17 14:26 | Event Note ---
Date of Encounter: 07/17/18 1. Previously described wedge-shaped consolidation in the right upper lobe is redemonstrated and appears heterogeneous, likely containing a mixture of solid components and fluid. The finding is new since radiograph dated 01/14/2018. Both malignancy or sequelae of prior infection/inflammation remain differential considerations. Consider further evaluation with tissue sampling versus PET/CT. 2. Severe emphysema. 3. Severe coronary artery atherosclerosis. 4. Aneurysmal dilatation of the ascending aorta up to 4.3 cm.
--- NOTE | 2018-07-17 15:25 | Discharge Summary ---
- NOTES TO OUTPATIENT PROVIDER Notes to Outpatient Provider: Patient is found to have RUL lung mass 5.6 cm x 3.4 cm, and needs pulmonology evaluation to decide about biopsy vs PET-CT and further work up. He vehemently wants to be discharged right away and pursue this work up as outpatient. He understands that this could be malignant and delay could be detrimental. Date of Encounter: 07/17/18 Time of Encounter: 15:23 - Discharge Diagnosis (1) Fracture of greater trochanter Priority: Primary Status: Acute Assessment and Plan: . Comments: . Qualifiers: Encounter type: initial encounter Fracture type: closed Fracture alignment: displaced Laterality: left Qualified Code(s): S72.112A - Displaced fracture of greater trochanter of left femur, initial encounter for closed fracture (2) Lung mass Priority: Secondary Status: Acute Hospital course: Per H&P: """Mr. Lucero is a 68 year old male with past medical history significant for peripheral arterial disease, peripheral vascular disease, left femoral popliteal bypass surgery, hyperlipidemia, DVT, arthritis, hemochromatosis with heterozygous mutation of the C282Y gene, and tobacco abuse who presents from [facility] ER for CT of left hip showing acute traumatic mildly comminuted minimally displaced fracture of the left greater trochanter with mild associated soft tissue swelling. CT also demonstrated degenerative changes to both hips, SI joints, and lower lumbar spine. Hip CT was obtained after abnormal finding on left hip xray that was ordered by nursing facility provider because of patient complaining of left hip pain according to the sending ER provider. However the patient denies any history of left hip pain. Patient only complains of pain to nodule around left knee that has been present since femoral popliteal bypass in April 2018 and has not changed in size, shape, or character. Denies any known injury to left hip and continues to ambulate without difficulty and work with physical therapy at nursing facility with last session being completed yesterday. Denies headache, chest pain, shortness of breath, abdominal pain, bowel or bladder changes, numbness, tingling, fever, cough, or chills. Patient has been in nursing facility for rehab since hospital discharge in June 2018 for anemia, hypokalemia, hypomagnesemia, cdiff diarrhea with positive PCR but negative toxin. Patient has finished oral vancomycin regimen for same and denies any more episodes of diarrhea. Hypokalemia and hypomagnesemia have resolved however anemia persists. Had negative endoscopy but refused colonoscopy. Sending ER provider also obtained chest xray in anticipation of surgery, which showed right lung mass or pleural fluid and recommended a chest CT for further inspection. Follows regularly with PCP however has not seen since being in nursing facility as he has been seeing a provider at the facility. History review shows alcohol abuse but patient denies history of abuse or any current use. Patient states he has a living will that we should have on file, informed patient that we do not, is agreeable to being full code at this time which is what nursing facility had on file as well.""""" (1) Greater trochanter fracture - No history of trauma or pain, incidentally found during work up of knee pain, could be pathologic fracture, may need bone biopsy. - Ortho appreciated: non-op management for hip fracture. WBAT with walker. (2) Skin nodule - Nodule present since April 2018 following femoral popliteal bypass surgery. - Has not changed in size, shape, or character however patient complains of pain at site. ---> Patient is adamant to be discharged to SNF today, I advised him to follow up with his vascular surgeon (3) RUL lung mass 5.6 x 3.4 cm - Incidentally seen on Chest xray, subsequent CT chest showed findings as below: 1. Previously described wedge-shaped consolidation in the right upper lobe is redemonstrated and appears heterogeneous, likely containing a mixture of solid components and fluid. The finding is new since radiograph dated 01/14/2018. Both malignancy or sequelae of prior infection/inflammation remain differential considerations. Consider further evaluation with tissue sampling versus PET/CT. 2. Severe emphysema. 3. Severe coronary artery atherosclerosis. 4. Aneurysmal dilatation of the ascending aorta up to 4.3 cm. - I counseled the patient extensively and offered inpatient work up and evaluation by pulmonology to decide about biopsy vs PET-CT and further work up. He vehemently wants to be discharged right away and pursue this work up as outpatient. He understands that this could be malignant and delay could be detrimental. I advised him to make sure that he make calls for appointments on Thursday. (4) Ascending aortic dilatation 4.[address] seen on [address]. AV is trileaflet as seen on echo in 03/2018 ---> OP cardiology eval for serial surveillance Discharge discussed with: patient, nurse - Time Spent with Patient Total time spent providing and/or coordinating discharge services: Greater than 30 minutes - Discharge Medications Home Medications: Cyanocobalamin (Vitamin B-12) [Vitamin B12] 1,000 mcg PO DAILY 03/26/18 [History] Folic Acid 1 mg PO DAILY 03/26/18 [History] Ergocalciferol (VITAMIN D2) [Vitamin D2] 50,000 unit PO WE 05/04/18 [History] Ferrous Sulfate 325 mg PO BIDWM tablet 06/26/18 [Rx] Ipratropium/Albuterol Neb [Duoneb] 3 ml IH [id number] PRN inhsol 06/26/18 [Rx] Magnesium Oxide [Mag-Ox] 800 mg PO BID tablet 06/26/18 [Rx] Omeprazole [PriLOSEC] 20 mg PO DAILY@0630 07/17/18 [History] Allergies/Adverse Reactions: Allergy/AdvReac Type Severity Reaction Status Date / Time No Known Allergies Allergy Verified 07/16/18 22:36 Date of admission: 07/16/18 21:35 Primary care physician: Yamini Harrison MD Consults: 07/17/18 02:30 Consult to Orthopedic Surgery [CONS] Routine Consulting Provider: [facility] Reason for Consult: Left greater trochanter fracture. [facility] called and spoke to Dr Tovar who agreed to see patient in consult. Call Completed: Yes 07/17/18 03:46 Consult to Vascular Surgery [CONS] Routine Consulting Provider: [facility] [place] Reason for Consult: Nodule around left knee since femoral popliteal bypass surgery in April 2018. Site has had no changes in shape, size, or character however patient complains of pain at site. Will call later this a.m. Call Completed: Yes Discharging clinician: Rajesh Lawson Anticipated date of discharge: 07/17/18 - Constitutional Vitals: Temp Pulse Resp BP Pulse Ox 98.5 F 75 17 153/96 97 07/17/18 11:26 07/17/18 11:26 07/17/18 11:26 07/17/18 11:26 07/17/18 11:26 Exam: General: Alert and oriented. Skin:Normal color, no rash. Chronic nodule around left knee reportedly present since femoral popliteal bypass surgery. Ambulating independently - Patient Status Disposition: Transfer SNF Condition: Fair Functional capacity at discharge: independent ambulation Overall status at discharge: patient is back to baseline - Discharge Instructions Follow Up With: Yamini Harrison MD [Primary Care Provider] - Additional Instructions: 1. You must follow up with pulmonology (lung doctors) soon to discuss work up for lung mass which could be cancer. 2. No changes made in your home medicines - Diet and Activity Activity: resume usual activities as tolerated Diet: advance to your usual diet
--- NOTE | 2018-07-17 15:41 | Physician Discharge Referral ---
ExtendedCare Referral Info Transfer To: [facility] Provider in Charge after Transfer: Other (Facility physician) Institutional Level of Care: Skilled - Diagnosis (1) Fracture of greater trochanter Priority: Primary Status: Acute (2) Lung mass Priority: Secondary Status: Acute - Transfer Medications Home Medications: Cyanocobalamin (Vitamin B-12) [Vitamin B12] 1,000 mcg PO DAILY 03/26/18 [History] Folic Acid 1 mg PO DAILY 03/26/18 [History] Ergocalciferol (VITAMIN D2) [Vitamin D2] 50,000 unit PO WE 05/04/18 [History] Ferrous Sulfate 325 mg PO BIDWM tablet 06/26/18 [Rx] Ipratropium/Albuterol Neb [Duoneb] 3 ml IH [id number] PRN inhsol 06/26/18 [Rx] Magnesium Oxide [Mag-Ox] 800 mg PO BID tablet 06/26/18 [Rx] Omeprazole [PriLOSEC] 20 mg PO DAILY@0630 07/17/18 [History] Allergies/Adverse Reactions: Allergy/AdvReac Type Severity Reaction Status Date / Time No Known Allergies Allergy Verified 07/16/18 22:36 - Respiratory Orders Smoking Cessation: Smoking cessation has been advised. For more information, call the [place] Tobacco Quit Line at 4-913-NRNK-NOW. - Mobility Orders Other (WBAT as tolerated) CERTIFICATION: I certify that the transfer of the above named patient to an Extended Care Facility is necessary for the continuing treatment of the diagnosis listed. The above information is true and accurate reflection of patient's current condition. Confidential - Redisclosure prohibited without a patient's written consent.
== END 2018-07-17 16:20 ==
LOC: 3NENU
PROVIDERS: ADMIT Internal Medicine; ATTEND Internal Medicine

== ENCOUNTER 2018-08-03 06:02 | Inpatient (IN) ==
[~2018-08-03 06:02] MED LIST: Vancomycin 1,000 MG, Sodium Chloride IRRigation 1,000 ML IR ONE
--- NOTE | 2018-08-03 07:05 | Anesthesia Evaluation PreOp ---
Date of Encounter: 08/03/18 Time of Encounter: 07:03 - Past History Planned Operation: L Femoral-pop thrombectomy Cardiac History: HTN, Hyperlipidemia, Other (PAD) Pulmonary History: Smoker, Pack/yr (20) [employer] History: Denies Any Significant HX Other Medical History: Denies Any Significant HX, GERD Anesthesia History: No Prior Anesthetic Complications, Past Anesthesia (L fem- pop bypass) Alcohol Use: none Drug use: none Medications and Allergies Cyanocobalamin (Vitamin B-12) [Vitamin B12] 1,000 mcg PO DAILY 03/26/18 [History] Folic Acid 1 mg PO DAILY 03/26/18 [History] Ergocalciferol (VITAMIN D2) [Vitamin D2] 50,000 unit PO WE 05/04/18 [History] Ferrous Sulfate 325 mg PO BIDWM tablet 06/26/18 [Rx] Ipratropium/Albuterol Neb [Duoneb] 3 ml IH [id number] PRN inhsol 06/26/18 [Rx] Magnesium Oxide [Mag-Ox] 800 mg PO BID tablet 06/26/18 [Rx] Omeprazole [PriLOSEC] 20 mg PO DAILY@0630 07/17/18 [History] Allergy/AdvReac Type Severity Reaction Status Date / Time No Known Allergies Allergy Verified 07/16/18 22:36 - Meds/Allergy Pre-op Review Medications Reviewed: Yes Allergies Reviewed: Yes Beta Blockers on Current Med List: No Anesthesia Results - Labs Laboratory Tests 07/16/18 07/17/18 07/17/18 18:35 03:30 03:30 WBC 6.8 Hgb 8.4 L Hct 25.4 L Plt Count 267 PT 11.4 INR 1.0 APTT 32.5 Sodium 138 Potassium 4.1 Chloride 103 Carbon Dioxide 28 BUN 14 Creatinine 0.93 Glucose 100 - Imaging EKG: report reviewed ( Interpretive Statements Sinus rhythm Electronically Signed On 07-20-2018 14:14:55 EST by Bozena Fagan) Additional studies: 04/07/18 Impressions: LVEF 55-60%. Mild concentric left ventricular hypertrophy. Moderate left ventricular diastolic dysfunction. Normal right ventricular structure and function. Unable to estimate RVSP due to lack of TR jet. No significant valvular dysfunction. Anesthesia Exam O2 Sat Height 1.8 m Weight 55.792 kg O2 Sat by Pulse Oximetry 100 Vital Signs Temp Pulse Resp BP Pulse Ox 97.9 F 76 18 149/96 100 08/03/18 06:31 08/03/18 06:31 08/03/18 06:31 08/03/18 06:31 08/03/18 06:31 Weight: 55kg NPO (# of Hours): >8 - HEENT Pupil (Motor): Pupils equal, EOMI Mallampati: II Teeth: Edentulous Oral Opening: Greater than 3 - [employer] LOC: Oriented [employer] Motor: Normal RUE, Normal LUE, Normal RLE, Normal LLE, Normal Face [employer] Sensory: Normal: RUE, LUE, RLE, LLE, Face - Cardiac Rhythm: Regular - Pulmonary Breath Sounds: bilateral Clear Respiratory Effort: Symmetrical Anesthesia Assess/Plan ASA Score: 3 (PAD, HTN, smoker, hyperlipidemia) Level of consciousness: Cooperative Anesthetic Plan: General Monitoring Plan: Standard Monitors, A-Line Recovery Plan: PACU
[2018-08-03] MEDS ORDERED: *HR* Propofol 200 MG/20 ML VIAL IVP ONE (07:13)
[2018-08-03] MEDS ORDERED: *HR* Succinylcholine 200 MG/10 ML VIAL IVP ONE (07:13)
[2018-08-03] MEDS ORDERED: Lidocaine -MPF 4% 5 ML AMPUL ONE (07:13)
[2018-08-03] MEDS ORDERED: Lidocaine -MPF 2% 2 ML VIAL ONE ×3 (07:13→07:54)
[2018-08-03] MEDS ORDERED: *HR* Midazolam HCl 2 MG/2 ML VIAL ONE (07:13)
[2018-08-03] MEDS ORDERED: *HR* FentaNYL (PF) 100 MCG/2 ML VIAL ONE ×3 (07:13→09:38)
[2018-08-03] MEDS ORDERED: *HR* Rocuronium Bromide 50 MG/5 ML VIAL ONE ×2 (07:13→09:51)
[2018-08-03] MEDS ORDERED: Heparin 1,000 UNITS/500 mL 500 ML ONE (07:19)
[2018-08-03] MEDS ORDERED: Albuterol 2.5 MG/3 ML NEBULIZER ONE (07:23)
[2018-08-03] MEDS ORDERED: CeFAZolin Syr 2,000MG/20 ML 2,000 MG/20 ML SYRINGE IVPB ONE (07:24)
[2018-08-03] MEDS ORDERED: Albuterol 2.5 MG/3 ML NEBULIZER IH ONE (07:26)
--- NOTE | 2018-08-03 07:28 | History & Physical Report ---
Date of Encounter: 08/03/18 Time of Encounter: 07:25 24 Hour HP Update - Instructions Instructions: If the History and Physical is less than 30 days old and was completed prior to A.M. admission and or procedure and has NOT been updated on calendar day of procedure please complete this update prior to performing procedure. - Update Patient reports changes in Medical Condition: No Changes in examination, assessment, or condition: No Changes in Medication: No Preop tests/diagnostics Reviewed: Yes Surgery Remains Indicated: Yes Consent for Planned Operative Procedure(s) Verified: Yes - Pre-Operative Checklist Preoperative Checklist Indicated: Yes Prophylactic Antibiotic Ordered: Yes Home Medications Include Beta Lorenzo: No Beta Lorenzo Taken Today (Day of Surgery): No Beta Lorenzo Taken Yesterday (Day Prior to Surgery): No Is VTE Prophylaxis Indicated?: Yes
[2018-08-03] MEDS ORDERED: Ringers Solution, Lactated 1,000 ML IVC SCH ×2 (07:30→07:45)
[2018-08-03] MEDS ORDERED: Ondansetron 4 MG/2 ML VIAL IVP ONE (07:36)
[2018-08-03] MEDS ORDERED: *HR* Promethazine 25 MG/ML VIAL IVP PRN (07:36)
[2018-08-03] MEDS ORDERED: *HR* OxyCODONE Immed Rel 5 MG TABLET PO PRN ×2 (07:36→13:19)
[2018-08-03] MEDS ORDERED: *HR* Meperidine 25 MG/ML SYRINGE IVP PRN (07:36)
[2018-08-03] MEDS ORDERED: ceFAZolin 1,000 MG, Sodium Chloride IRRigation 1,000 ML IR ONE (08:00)
[2018-08-03] MEDS ORDERED: Dexamethasone 4 MG/ML VIAL ONE (08:23)
[2018-08-03] MEDS ORDERED: Ondansetron 4 MG/2 ML VIAL ONE (08:23)
[2018-08-03] MEDS ORDERED: Heparin 1,000 UNITS/500 mL 1,000 ML ONE (08:44)
[2018-08-03] MEDS ORDERED: *HR* PHENYLEPHRINE 1,000 MCG/10 ML SYRINGE IVP ONE (09:03)
[2018-08-03] MEDS ORDERED: Neostigmine Methylsulfate 3 MG/3 ML SYRINGE ONE (11:30)
--- NOTE | 2018-08-03 11:32 | Operative Note ---
Date of procedure: 08/03/18 Pre-op diagnosis: PAD/left fem-pop graft occlusion/painful left thigh cyst Post-op diagnosis: same Procedure: left fem-pop bypass graft thrombectomy left distal popliteal artery endarterectomy excision of left thigh cyst Complications: 0 Anesthesia: GETA Surgeon: Shay Mcgill Was there an assistant golf course superintendent present: No Estimated blood loss (cc): 150 Specimen: left thigh cyst Condition: stable Disposition: PACU Procedure in Detail: History Dieter Lucero is a 68-year-old white male with a history of significant peripheral vascular disease. He had undergone a left femoral popliteal bypass graft as well as iliac and femoral endarterectomies in April 2018. This part of his routine follow-up he had duplex scanning which showed occlusion of the left femoral-popliteal bypass graft. In addition, the patient developed a painful seroma on the distal vein harvest site on the left thigh. Procedure After informed consent was obtained the patient was taken the operating room. General endotracheal anesthesia was established. An arterial line was placed. The left lower extremity was then sterilely prepped and draped. A timeout protocol was observed. An incision was then made through the old surgical scar at the below the knee incision. Dissection was carried down here to reveal the 6 mm PTFE Distaflo graft. The dissection was also carried down to expose the popliteal artery and its bifurcation. After complete dissection it was found that the area of the popliteal artery immediately distal to the anastomosis had severe plaque formation that extended into the orifice of the anterior tibial and tibial peroneal trunk. This appeared to be the reason for the graft occlusion. Therefore the dissection was extended and exposure made wider so that control could be obtained of the popliteal artery bifurcation. With this done 4000 units of heparin were administered intravenously. A transverse incision was made over the crum of the graft. Chronic clot was identified. Then using a series of catheters that included a 3 and 4 and 5 Malay the synthetic graft was thrombectomized. The occluding material was partially dislodged but would not flush out through the graft. Therefore a second incision needed to be made in the left groin. Dissection was carried down to the synthetic graft. Controls obtained of the graft at this location and then using the catheters in an antegrade manner as well as with flushing the chronic clot was able to be flushed from the graft and pulsatile flow was restored. The graftotomy made at the groin was then closed. The clamp was temporally removed to about allow the graft to demonstrate the pulsation and there is excellent flow and pressure through the graft. It was then clamped and the graft was flushed with heparinized saline. With this done attention was directed to the distal [id number] popliteal. An arteriotomy was then made in oblique fashion. This allowed me to visualize the distal popliteal. A very large dense calcified plaque was present as well as chronic and subacute clot. This was endarterectomized. The orifice of the tibioperoneal trunk and anterior tibial artery were also endarterectomized. Backbleeding was demonstrated from both of these vessels. The area was then copiously flushed and the flow from the endarterectomized portion of the popliteal to the distal aspect of the femoral-popliteal anastomosis was checked to ensure wide patency. With this done the endarterectomy site was closed primarily with a running 6-0 Prolene suture. Attention was then directed back to the original graftotomy over the crum at the distal anastomosis. This was closed using a running 6-0 Prolene suture as well. After appropriate backbleeding and flushing the graft was opened. Excellent pulsatile flow was achieved. Strong biphasic to triphasic signals were then identified at the left ankle over the posterior tibial and dorsalis pedis artery. The wounds were then copiously irrigated with antibiotic containing solution. Hemostasis was achieved. Marcaine was infiltrated into the wound edges and the incisions were closed using absorbable suture. The final component of this operation was excision of the distal thigh vein exposure site seroma. An incision was made through the previous scar. Dissection was carried down to and around the cystic seroma. This was excised intact and submitted as specimen. The wound was then irrigated. Hemostasis was achieved. The underlying greater saphenous vein was patent and undisturbed. This wound was then closed in layers with absorbable suture. Dry sterile dressings were then applied to all 3 wounds. Patient was extubated in the operating room. He was taken to the recovery room in stable condition. There were no intraoperative complications.
[2018-08-03] MEDS: *HR* HYDROmorphone (PF) 1 MG/ML SYRINGE IVP PRN ×2 (12:04→12:10)
--- NOTE | 2018-08-03 13:02 | Anesthesia Evaluation Post Op ---
Date of Encounter: 08/03/18 Time of Encounter: 13:00 - Vital Signs Vital Signs: Vital Signs/O2 Sat/Glucose, Most Recent Temp Pulse Resp BP Pulse Ox 98.0 F 60 18 149/69 98 08/03/18 12:54 08/03/18 12:54 08/03/18 12:54 08/03/18 12:54 08/03/18 12:54 - Lungs Lungs: Clear Ascult./Percussion - Airway Airway: Non-obstructed - Cardiovascular Regular Rate - Mental Status Mental Status: Alert & Oriented, Answers Appropriately - Pain Pain Scale: 3 Pain Scale used: Numeric (1 - 10) - Nausea Vomiting Nausea Vomiting: Not Present - Hydration Hydration: Ice chips, Carvalho catheter Notes: 08/03/18 13:01 AAOx3,VSS with no complaints - Discharge PostOp Status: Transfer Patient to floor
[2018-08-03] MEDS ORDERED: Ipratropium/Albuterol Neb 3 ML IH PRN (13:19)
[2018-08-03] MEDS ORDERED: Naloxone 0.4 MG/ML INJ IVP PRN (13:19)
[2018-08-03] MEDS ORDERED: Ondansetron 4 MG/2 ML VIAL IVP PRN (13:19)
[2018-08-03] MEDS ORDERED: *HR* Labetalol 20 MG/4 ML SYRINGE IVP PRN (13:19)
[2018-08-03] MEDS ORDERED: Acetaminophen 325 MG TABLET PO PRN (13:19)
[2018-08-03 14:31] LABS: Hematocrit 25.8 % (37.5-50.1); Hemoglobin 8.4 g/dL (12.9-16.9)
[2018-08-03] MEDS ORDERED: Melatonin 3 MG TABLET PO SCH (21:00)
[2018-08-03] MEDS: Magnesium Oxide 400 MG TABLET PO SCH (21:30)
[2018-08-03] MEDS: Gabapentin 300 MG CAPSULE PO SCH (21:30)
[2018-08-03] MEDS: *HR* HYDROcodone/Acet 5/325 mg TABLET PO PRN (21:38)
[2018-08-04 03:21] LABS: Basophils % 0.3 %; Eosinophils % 0.1 %; Hematocrit 24.9 % (37.5-50.1); Hemoglobin 8.3 g/dL (12.9-16.9); Immature Granulocytes % 0.4 % (0-4); Lymphocytes # 1.6 K/mcL (0.6-4.6); Lymphocytes % 16.2 %; Mean Corpuscular HGB Conc 33.3 g/dL (31.6-35.5); Mean Corpuscular Hemoglobin 31.8 pg (28.0-33.3); Mean Corpuscular Volume 95.4 fL (83.0-100.0); Mean Platelet Volume 9.8 fL (9.4-12.4); Monocytes # 1.2 K/mcL (0.0-1.3); Monocytes % 11.9 %; Neutrophils # 7.1 K/mcL (1.6-8.9); Platelet Count 257 K/mcL (140-400); Red Blood Count 2.61 M/mcL (4.19-5.50); Segmented Neutrophils % 71.1 %
[2018-08-04 03:41] LABS: BUN/Creatinine Ratio 10 (6-26); Blood Urea Nitrogen 12 mg/dL (8-23); Calcium 9.1 mg/dL (8.6-10.3); Carbon Dioxide 27 mEq/L (23-29); Chloride 100 mEq/L (98-107); Glucose 121 mg/dL (70-105); Osmolality,Calculated 281 (280-300); Sodium 135 mEq/L (136-145); eGFR For Non-African Americans > 60 (> 60)
[2018-08-04] MEDS: *HR* HYDROcodone/Acet 5/325 mg TABLET PO PRN (04:19)
[2018-08-04] MEDS: Magnesium Oxide 400 MG TABLET PO SCH (08:45)
[2018-08-04] MEDS: Gabapentin 300 MG CAPSULE PO SCH (08:45)
[2018-08-04] MEDS ORDERED: Cyanocobalamin (B-12) 1,000 MCG TABLET PO SCH (09:00)
[2018-08-04] MEDS ORDERED: Folic Acid 1 MG TABLET PO SCH (09:00)
--- NOTE | 2018-08-04 09:32 | Physician Discharge Referral ---
ExtendedCare Referral Info Transfer To: [facility] Provider in Charge: Dr Mcgill Provider in Charge after Transfer: PCP Institutional Level of Care: Intermediate Expected Duration of Placement: 1-3 weeks Prognosis: Good Aware of Diagnosis: Patient Aware of Prognosis: Patient - Transfer Medications Home Medications: Cyanocobalamin (Vitamin B-12) [Vitamin B12] 1,000 mcg PO DAILY 03/26/18 [History] Folic Acid 1 mg PO DAILY 03/26/18 [History] Ferrous Sulfate 325 mg PO BIDWM tablet 06/26/18 [Rx] Ipratropium/Albuterol Neb [Duoneb] 3 ml IH [id number] PRN inhsol 06/26/18 [Rx] Omeprazole [PriLOSEC] 20 mg PO DAILY@0630 07/17/18 [History] Gabapentin [Neurontin] 300 mg PO BID 08/03/18 [History] Hydrocodone/Acetaminophen [[place] 5-325 Tablet] 1 tab PO 0600,1400 08/03/18 [History] Hydrocodone/Acetaminophen [[place] 5-325 Tablet] 1 tab PO HS PRN 08/03/18 [History] Magnesium Oxide [Mag-Ox] 400 mg PO BID 08/03/18 [History] Melatonin [Melatin] 6 mg PO HS 08/03/18 [History] Allergies/Adverse Reactions: Allergy/AdvReac Type Severity Reaction Status Date / Time No Known Allergies Allergy Verified 08/03/18 07:31 - Respiratory Orders Smoking Cessation: Smoking cessation has been advised. For more information, call the [place] Tobacco Quit Line at 6-132-GGFH-NOW. - Ancillary Orders May use pressure relief devices daily prn - Advance Directives Code Status: Full Code - Mobility Orders Ambulate - Rehabiliation Orders Rehab Potential: Good Rehab Orders: Evaluation for Physical Therapy, Evaluation for Occupational Therapy - Diet Orders Regular CERTIFICATION: I certify that the transfer of the above named patient to an Extended Care Facility is necessary for the continuing treatment of the diagnosis listed. The above information is true and accurate reflection of patient's current condition. Confidential - Redisclosure prohibited without a patient's written consent.
--- NOTE | 2018-08-04 09:34 | Discharge Summary ---
Orders not resulted at time of discharge: Pending orders 08/03/18 08:10 Red Blood Cells [BBK] Stat Type and Screen [BBK] Stat 08/03/18 11:27 Surgical Pathology [PTH] Routine Date of Encounter: 08/04/18 Time of Encounter: 09:32 - Discharge Diagnosis (1) Greater trochanter fracture Priority: Secondary Status: Acute Comments: Patient has been evaluated for left greater trochanteric fracture. This will not require surgical intervention. Qualifiers: Encounter type: initial encounter Fracture type: closed Fracture alignment: displaced Laterality: left Qualified Code(s): S72.112A - Displaced fracture of greater trochanter of left femur, initial encounter for closed fracture (2) PAD (peripheral artery disease) Priority: Primary Status: Chronic Comments: Patient has severe calcific disease. Patient presented with thrombosis of left femoral popliteal bypass graft. This was corrected by thrombectomy and distal popliteal artery endarterectomy. (3) Protein calorie malnutrition Priority: Secondary Status: Chronic Comments: Patient has severe protein calorie malnutrition. Qualifiers: Protein-calorie malnutrition severity: severe Qualified Code(s): E43 - Unspecified severe protein-calorie malnutrition (4) Tobacco abuse Priority: Secondary Status: Chronic Comments: Patient has long-term tobacco abuse history. - Hospital Course Hospital course: Mr. Lucero is a 68 year old male With known severe left lower extremity vascular occlusive disease. Patient had undergone surgery in April 2018. On follow-up testing he was found to have thrombosed his left femoral-popliteal bypass graft. Patient return to the hospital now from the extended care facility for thrombectomy of the left lower extremity bypass graft. This was accomplished successfully. He had no periprocedural complications. His left foot was warm and pink following surgery. He was felt ready for return to the extended care facility on the afternoon of postoperative day #1. Patient will continue his usual medications and therapies at the extended care facility. - Time Spent with Patient Total time spent providing and/or coordinating discharge services: - Discharge Medications Prescriptions: Continue Folic Acid 1 mg PO DAILY Cyanocobalamin (Vitamin B-12) [Vitamin B12] 1,000 mcg PO DAILY Ipratropium/Albuterol Neb [Duoneb] 3 ml IH [id number] PRN inhsol PRN Reason: Shortness Of Breath/Wheezing Ferrous Sulfate 325 mg PO BIDWM tablet Omeprazole [PriLOSEC] 20 mg PO DAILY@0630 Gabapentin [Neurontin] 300 mg PO BID Hydrocodone/Acetaminophen [Milton 5-325 Tablet] 1 tab PO 0600,1400 Hydrocodone/Acetaminophen [Milton 5-325 Tablet] 1 tab PO HS PRN PRN Reason: Pain Magnesium Oxide [Mag-Ox] 400 mg PO BID Melatonin [Melatin] 6 mg PO HS Home Medications: Cyanocobalamin (Vitamin B-12) [Vitamin B12] 1,000 mcg PO DAILY 03/26/18 [History] Folic Acid 1 mg PO DAILY 03/26/18 [History] Ferrous Sulfate 325 mg PO BIDWM tablet 06/26/18 [Rx] Ipratropium/Albuterol Neb [Duoneb] 3 ml IH [id number] PRN inhsol 06/26/18 [Rx] Omeprazole [PriLOSEC] 20 mg PO DAILY@0630 07/17/18 [History] Gabapentin [Neurontin] 300 mg PO BID 08/03/18 [History] Hydrocodone/Acetaminophen [Milton 5-325 Tablet] 1 tab PO 0600,1400 08/03/18 [History] Hydrocodone/Acetaminophen [Milton 5-325 Tablet] 1 tab PO HS PRN 08/03/18 [History] Magnesium Oxide [Mag-Ox] 400 mg PO BID 08/03/18 [History] Melatonin [Melatin] 6 mg PO HS 08/03/18 [History] Allergies/Adverse Reactions: Allergy/AdvReac Type Severity Reaction Status Date / Time No Known Allergies Allergy Verified 08/03/18 07:31 Date of admission: 08/03/18 12:41 Primary care physician: Yamini Harrison MD Consults: 08/03/18 13:19 Consult to Motel Operator [CONS] Routine Reason for SW Consult: patient to return to [facility]-anticipate patient will be medically ready by tomortrow PM. Procedure(s) Performed: Thrombectomy of left femoral popliteal bypass graft, endarterectomy of distal left popliteal artery, and resection of left thigh incisional seroma. Discharging clinician: Shay Mcgill Anticipated date of discharge: 08/04/18 Exam Vital Signs, Last 4 Hours Temp Pulse Resp BP Pulse Ox 08/04/18 07:57 98.8 F 76 18 131/91 98 General: Present: Conversant, No Apparent Distress HEENT: Present: Atraumatic Vascular: Present: Normal capillary refill, Color/Temperature (Left foot is warm and pink), Surgical incisions (Patient has dry dressing over the left thigh incisions) Skin: Present: No rashes noted on visualized skin - Patient Status Disposition: Transfer SNF Condition: Fair Functional capacity at discharge: uses cane/walker Overall status at discharge: patient is progressing back to baseline - Discharge Instructions Follow Up With: Yamini Harrison MD [Primary Care Provider] - (Pt is from [facility] no PCP appointment needed) Shay Mcgill MD [Partnered Physician] - 08/23/18 11:15 am (This appointment is in [place]) Additional Instructions: Removed surgical dressings on postoperative day #2. Resume usual medications at extended care facility. Resume usual therapies and nutritional assistance at extended care facility. Return to see Dr. Mcgill in 2 weeks. - Diet and Activity Activity: as per physical therapy, increase activity as tolerated Diet: advance to your usual diet
[2018-08-04 11:16] VITALS: BP 126/97
== END 2018-08-04 16:08 | DRG 252 ==
LOC: SAMDAY 06:02 → 2NNU 12:41
PROVIDERS: ADMIT Surgery Vascular Surgery; ATTEND Surgery Vascular Surgery

== ENCOUNTER 2019-08-13 16:22 | Inpatient (IN) ==
[2019-08-13] MEDS ORDERED: Naloxone 0.4 MG/ML INJ IVP PRN (20:47)
[2019-08-13] MEDS ORDERED: *HR* LORazepam 2 MG/ML VIAL IVP PRN ×2 (20:47)
[2019-08-13] MEDS ORDERED: 0.9 % Sodium Chloride 1,000 ML IVC SCH (21:00)
[2019-08-13] MEDS: Nicotine 14 MG PATCH.TD24 TD SCH (21:24)
[2019-08-13] MEDS ORDERED: cefTRIAXone 1,000 MG in 0.9 % Sodium Chloride Mini Bag 100 ML IVPB ONE ×2 (22:00→23:00)
[2019-08-13 22:18] LABS: Hematocrit 29.1 % (37.5-50.1); Hemoglobin 10.4 g/dL (12.9-16.9)
[2019-08-14 03:50] LABS: Bilirubin,Urine Moderate (Negative); Blood,Urine Negative (Negative); Clarity,Urine Cloudy (Clear); Color,Urine Orange (Yellow); Glucose,Urine (UA) Normal (Normal); Ketones,Urine 40 mg/dL (Negative); Leukocyte Esterase,Urine Small (Negative); Nitrite,Urine Positive (Negative); Protein,Urine 30 mg/dL (Neg-Trace)
[2019-08-14 04:00] LABS: Amphetamine Screen,Urine Negative ng/mL (Cutoff=1000); Barbiturate Screen,Urine Negative ng/mL (Cutoff=200); Benzodiazepines Screen,Urine Negative ng/mL (Cutoff=200); Cannabinoid Screen,Urine Negative ng/mL (Cutoff = 50); Cocaine Screen,Urine Negative ng/mL (Cutoff= 300); Opiate Screen,Urine Negative ng/mL (Cutoff=300); Phencyclidine Screen,Urine Negative ng/mL (Cutoff=25)
[2019-08-14 04:07] LABS: Amorphous Sediment,Urine Few per hpf (Few); Bacteria,Urine Few per hpf (None-Few); WBC,Urine 0-3 per hpf (0-3)
[2019-08-14] MEDS ORDERED: Isovue-370 500 ML BOTTLE IVP ONE ×2 (04:34→15:17)
[2019-08-14] MEDS: *HR* LORazepam 2 MG/ML VIAL IVP PRN (05:17)
[2019-08-14] MEDS: Pantoprazole 40 MG VIAL IVP SCH ×2 (05:17→17:07)
[2019-08-14] MEDS ORDERED: 0.9 % Sodium Chloride 500 ML IVC ONE (06:33)
[2019-08-14] MEDS ORDERED: 0.9 % Sodium Chloride 500 ML ONE (06:36)
[2019-08-14 06:46] LABS: Basophils % 0.4 %; Hematocrit 28.9 % (37.5-50.1); Red Cell Distribution Width 12.8 % (11.5-14.5)
[2019-08-14 06:48] LABS: Hemoglobin 10.2 g/dL (12.9-16.9); Immature Granulocytes % 0.2 % (0-4); Lymphocytes # 0.4 K/mcL (0.6-4.6); Lymphocytes % 6.9 %; Mean Corpuscular HGB Conc 35.3 g/dL (31.6-35.5); Mean Corpuscular Hemoglobin 35.9 pg (28.0-33.3); Mean Corpuscular Volume 101.8 fL (83.0-100.0); Mean Platelet Volume 10.3 fL (9.4-12.4); Monocytes # 0.4 K/mcL (0.0-1.3); Monocytes % 7.8 %; Neutrophils # 4.7 K/mcL (1.6-8.9); Red Blood Count 2.84 M/mcL (4.19-5.50); Segmented Neutrophils % 84.7 %; White Blood Count 5.5 K/mcL (4.3-11.1)
[2019-08-14 06:51] LABS: Platelet Count 78 K/mcL (140-400)
[2019-08-14 07:25] LABS: Alanine Aminotransferase 24 Units/L (7-52); Albumin 3.7 g/dL (3.5-5.7); Albumin/Globulin Ratio 1.6 (1.1-2.2); Alkaline Phosphatase 113 Units/L (34-104); Aspartate Amino Transferase 61 Units/L (13-39); BUN/Creatinine Ratio 14 (6-26); Bilirubin,Total 2.1 mg/dL (0.3-1.0); Blood Urea Nitrogen 10 mg/dL (8-23); Calcium 8.1 mg/dL (8.6-10.3); Carbon Dioxide 21 mEq/L (23-29); Chloride 91 mEq/L (98-107); Chol/HDL Ratio 2.2 (0-4.9); Cholesterol 150 mg/dL (< 200); Globulin 2.3 g/dL (2.4-3.5); Glucose 87 mg/dL (70-105); HDL Cholesterol 67 mg/dL (40-59); LDL Cholesterol,Calculated 64 mg/dL (0-99); Magnesium 0.9 mg/dL (1.6-2.6); Osmolality,Calculated 274 (280-300); Phosphorous 2.1 mg/dL (2.7-4.5); Potassium 2.9 mEq/L (3.5-5.1); Sodium 133 mEq/L (136-145); Triglycerides 94 mg/dL (< 150); Troponin I 0.05 ng/mL (< 0.04); eGFR For African Americans > 60 (> 60); eGFR For Non-African Americans > 60 (> 60)
[2019-08-14] MEDS: Nicotine 14 MG PATCH.TD24 TD SCH (07:30)
[2019-08-14 08:51] LABS: Estimated Average Glucose 85 mg/dl
[2019-08-14] MEDS ORDERED: cefTRIAXone 1,000 MG in Water for inj. (sterile) 10 ML IVP SCH (09:00)
[2019-08-14] MEDS: 0.9 % Sodium Chloride w KCl 40 MEQ/1,000 ML MLS IVC SCH ×2 (09:25→20:43)
[2019-08-14] MEDS: Vancomycin Oral Soln 125 MG/2.5 ML UDC PO SCH ×4 (09:54→20:23)
[2019-08-14 10:43] LABS: Hematocrit 28.3 % (37.5-50.1); Hemoglobin 9.9 g/dL (12.9-16.9)
[2019-08-14] MEDS ORDERED: Potassium Phosphate 44 MEQ in 0.9 % Sodium Chloride 250 ML IVPB ONE (11:43)
[2019-08-14] MEDS ORDERED: *HR* FentaNYL (PF) 100 MCG/2 ML VIAL IVP ONE (15:31)
[2019-08-14] MEDS ORDERED: *HR* Midazolam HCl 5 MG/5 ML VIAL IVP ONE (15:31)
[2019-08-14] MEDS: Thiamine (B-1) 100 MG, Folic Acid 1 MG, MVI, adult with vitamin K 10 ML in 0.9 % Sodi... IVPB SCH (17:41)
[2019-08-14] MEDS: Fluconazole 200 MG/100 ML 200 MG/100 ML BAG IVPB SCH (18:01)
[2019-08-14] MEDS: Pantoprazole 40 MG in 0.9 % Sodium Chloride Mini Bag 100 ML IVC SCH (18:55)
[2019-08-15] MEDS: Pantoprazole 40 MG in 0.9 % Sodium Chloride Mini Bag 100 ML IVC SCH ×5 (00:05→22:26)
[2019-08-15 06:01] LABS: Eosinophils % 0.6 %; Hemoglobin 9.3 g/dL (12.9-16.9)
[2019-08-15 06:03] LABS: Basophils % 0.4 %; Hematocrit 26.6 % (37.5-50.1); Immature Granulocytes % 0.2 % (0-4); Immature Platelets 8.3 % (1.1-6.1); Lymphocytes # 1.1 K/mcL (0.6-4.6); Lymphocytes % 22.7 %; Mean Corpuscular Hemoglobin 35.9 pg (28.0-33.3); Mean Corpuscular Volume 102.7 fL (83.0-100.0); Mean Platelet Volume 10.9 fL (9.4-12.4); Monocytes # 0.4 K/mcL (0.0-1.3); Monocytes % 8.4 %; Neutrophils # 3.2 K/mcL (1.6-8.9); Red Blood Count 2.59 M/mcL (4.19-5.50); Segmented Neutrophils % 67.7 %; White Blood Count 4.7 K/mcL (4.3-11.1)
[2019-08-15 06:29] LABS: Platelet Count 63 K/mcL (140-400)
[2019-08-15 06:31] LABS: Platelet Estimate Decreased (Normal)
[2019-08-15] MEDS: 0.9 % Sodium Chloride w KCl 40 MEQ/1,000 ML MLS IVC SCH ×2 (08:27→21:23)
[2019-08-15 09:22] LABS: Alanine Aminotransferase 20 Units/L (7-52); Albumin 3.2 g/dL (3.5-5.7); Albumin/Globulin Ratio 1.6 (1.1-2.2); Alkaline Phosphatase 96 Units/L (34-104); Aspartate Amino Transferase 56 Units/L (13-39); BUN/Creatinine Ratio 14 (6-26); Bilirubin,Total 1.6 mg/dL (0.3-1.0); Blood Urea Nitrogen 9 mg/dL (8-23); Calcium 7.5 mg/dL (8.6-10.3); Carbon Dioxide 21 mEq/L (23-29); Chloride 105 mEq/L (98-107); Glucose 107 mg/dL (70-105); Osmolality,Calculated 283 (280-300); Potassium 4.1 mEq/L (3.5-5.1); Sodium 137 mEq/L (136-145); Total Protein 5.2 g/dL (6.4-8.9); eGFR For African Americans > 60 (> 60); eGFR For Non-African Americans > 60 (> 60)
[2019-08-15] MEDS: Nicotine 14 MG PATCH.TD24 TD SCH (10:29)
[2019-08-15] MEDS: Vancomycin Oral Soln 125 MG/2.5 ML UDC PO SCH ×4 (10:29→21:23)
[2019-08-15] MEDS: Fluconazole 200 MG/100 ML 200 MG/100 ML BAG IVPB SCH (10:30)
[2019-08-15] MEDS: Thiamine (B-1) 100 MG, Folic Acid 1 MG, MVI, adult with vitamin K 10 ML in 0.9 % Sodi... IVPB SCH (17:22)
[2019-08-16 01:08] LABS: Hemoglobin 8.8 g/dL (12.9-16.9); Immature Granulocytes % 0.6 % (0-4)
[2019-08-16 01:10] LABS: Basophils % 0.6 %; Eosinophils % 1.2 %; Hematocrit 25.8 % (37.5-50.1); Lymphocytes # 0.8 K/mcL (0.6-4.6); Lymphocytes % 23.3 %; Mean Corpuscular HGB Conc 34.1 g/dL (31.6-35.5); Mean Corpuscular Hemoglobin 35.9 pg (28.0-33.3); Mean Corpuscular Volume 105.3 fL (83.0-100.0); Mean Platelet Volume 10.9 fL (9.4-12.4); Monocytes # 0.3 K/mcL (0.0-1.3); Monocytes % 8.8 %; Neutrophils # 2.2 K/mcL (1.6-8.9); Red Blood Count 2.45 M/mcL (4.19-5.50); Red Cell Distribution Width 13.2 % (11.5-14.5); Segmented Neutrophils % 65.5 %; White Blood Count 3.4 K/mcL (4.3-11.1)
[2019-08-16 01:11] LABS: Platelet Count 71 K/mcL (140-400)
[2019-08-16 01:12] LABS: Platelet Estimate Decreased (Normal)
[2019-08-16 01:26] LABS: BUN/Creatinine Ratio 8 (6-26); Blood Urea Nitrogen 5 mg/dL (8-23); Calcium 7.6 mg/dL (8.6-10.3); Carbon Dioxide 27 mEq/L (23-29); Chloride 102 mEq/L (98-107); Glucose 83 mg/dL (70-105); Magnesium 1.1 mg/dL (1.6-2.6); Osmolality,Calculated 274 (280-300); Phosphorous 1.1 mg/dL (2.7-4.5); Potassium 3.8 mEq/L (3.5-5.1); Sodium 134 mEq/L (136-145); eGFR For African Americans > 60 (> 60); eGFR For Non-African Americans > 60 (> 60)
[2019-08-16] MEDS: Pantoprazole 40 MG in 0.9 % Sodium Chloride Mini Bag 100 ML IVC SCH (04:11)
[2019-08-16] MEDS ORDERED: *HR* Midazolam HCl 2 MG/2 ML VIAL ONE (06:58)
[2019-08-16] MEDS ORDERED: *HR* FentaNYL (PF) 100 MCG/2 ML VIAL ONE (06:58)
[2019-08-16] MEDS ORDERED: *HR* Propofol 200 MG/20 ML VIAL IVP ONE (06:58)
[2019-08-16] MEDS ORDERED: Lidocaine -MPF 4% 5 ML AMPUL ONE (07:17)
[2019-08-16] MEDS ORDERED: Albuterol 2.5 MG/3 ML NEBULIZER ONE (08:14)
[2019-08-16] MEDS ORDERED: Albuterol 2.5 MG/3 ML NEBULIZER IH ONE (08:20)
[2019-08-16] MEDS: Nicotine 14 MG PATCH.TD24 TD SCH (09:23)
[2019-08-16] MEDS: Vancomycin Oral Soln 125 MG/2.5 ML UDC PO SCH ×4 (09:23→20:25)
[2019-08-16] MEDS: 0.9 % Sodium Chloride w KCl 40 MEQ/1,000 ML MLS IVC SCH (09:30)
[2019-08-16] MEDS: Fluconazole 200 MG/100 ML 200 MG/100 ML BAG IVPB SCH (09:32)
[2019-08-16 11:32] LABS: Folate 12.5 ng/mL (3.0-16.0)
[2019-08-16 11:39] LABS: Ferritin 1444 ng/mL (20-250); Iron 48 mcg/dL (65-175); Transferrin < 75 mg/dL (203-362)
[2019-08-16] MEDS ORDERED: Potassium Phosphate 44 MEQ in 0.9 % Sodium Chloride 250 ML IVPB ONE (14:45)
[2019-08-16] MEDS: Thiamine (B-1) 100 MG, Folic Acid 1 MG, MVI, adult with vitamin K 10 ML in 0.9 % Sodi... IVPB SCH (17:39)
[2019-08-16 19:43] LABS: Appearance of Body Fluid Clear (Clear); Volume of Body Fluid 25 mL
[2019-08-16] MEDS: *HR* LORazepam 2 MG/ML VIAL IVP PRN (21:12)
[2019-08-17] MEDS: 0.9 % Sodium Chloride w KCl 40 MEQ/1,000 ML MLS IVC SCH (03:39)
[2019-08-17] MEDS: Pantoprazole 40 MG in 0.9 % Sodium Chloride Mini Bag 100 ML IVC SCH ×2 (03:40→05:16)
[2019-08-17 05:22] LABS: Hematocrit 24.8 % (37.5-50.1); Hemoglobin 8.4 g/dL (12.9-16.9); Mean Corpuscular HGB Conc 33.9 g/dL (31.6-35.5); Red Cell Distribution Width 13.2 % (11.5-14.5)
[2019-08-17 05:23] LABS: Eosinophils # 0.1 K/mcL (0.0-0.6); Eosinophils % 1.8 %; Immature Granulocytes % 1.8 % (0-4); Immature Platelets 7.4 % (1.1-6.1); Lymphocytes # 0.9 K/mcL (0.6-4.6); Lymphocytes % 22.4 %; Mean Corpuscular Hemoglobin 35.9 pg (28.0-33.3); Mean Platelet Volume 10.6 fL (9.4-12.4); Monocytes # 0.5 K/mcL (0.0-1.3); Monocytes % 12.4 %; Neutrophils # 2.4 K/mcL (1.6-8.9); Red Blood Count 2.34 M/mcL (4.19-5.50); Segmented Neutrophils % 60.6 %; White Blood Count 3.9 K/mcL (4.3-11.1)
[2019-08-17 05:24] LABS: Platelet Count 88 K/mcL (140-400)
[2019-08-17 05:39] LABS: BUN/Creatinine Ratio 5 (6-26); Blood Urea Nitrogen 3 mg/dL (8-23); Calcium 7.8 mg/dL (8.6-10.3); Carbon Dioxide 24 mEq/L (23-29); Chloride 99 mEq/L (98-107); Glucose 87 mg/dL (70-105); Osmolality,Calculated 270 (280-300); Potassium 3.9 mEq/L (3.5-5.1); Sodium 132 mEq/L (136-145); eGFR For African Americans > 60 (> 60); eGFR For Non-African Americans > 60 (> 60)
[2019-08-17 05:40] LABS: Magnesium 1.5 mg/dL (1.6-2.6); Phosphorous 2.6 mg/dL (2.7-4.5)
[2019-08-17] MEDS: *HR* LORazepam 2 MG/ML VIAL IVP PRN ×2 (07:59→12:08)
[2019-08-17] MEDS: Multivit/Ca/Min/Fe/FA 1 TAB TABLET PO SCH (08:00)
[2019-08-17] MEDS: Nicotine 14 MG PATCH.TD24 TD SCH (08:00)
[2019-08-17] MEDS: Fluconazole 100 MG TABLET PO SCH (08:00)
[2019-08-17] MEDS: Folic Acid 1 MG TABLET PO SCH (08:00)
[2019-08-17] MEDS: Vancomycin Oral Soln 125 MG/2.5 ML UDC PO SCH ×4 (08:01→20:58)
[2019-08-17] MEDS: Thiamine (B-1) 100 MG TABLET PO SCH (08:02)
[2019-08-17 17:25] LABS: QuantiFERON Mitogen minus NIL 2.87 IU/mL
[2019-08-18 01:48] LABS: A.galactomannan Ag Index 0.03
[2019-08-18 05:46] LABS: Hemoglobin 8.4 g/dL (12.9-16.9)
[2019-08-18 05:48] LABS: Hematocrit 24.2 % (37.5-50.1); Immature Platelets 5.7 % (1.1-6.1); Mean Corpuscular HGB Conc 34.7 g/dL (31.6-35.5); Mean Corpuscular Hemoglobin 36.7 pg (28.0-33.3); Mean Corpuscular Volume 105.7 fL (83.0-100.0); Mean Platelet Volume 10.4 fL (9.4-12.4); Red Blood Count 2.29 M/mcL (4.19-5.50); Red Cell Distribution Width 13.6 % (11.5-14.5); White Blood Count 3.5 K/mcL (4.3-11.1)
[2019-08-18 05:52] LABS: BUN/Creatinine Ratio 5 (6-26); Blood Urea Nitrogen 3 mg/dL (8-23); Calcium 8.2 mg/dL (8.6-10.3); Carbon Dioxide 28 mEq/L (23-29); Chloride 96 mEq/L (98-107); Glucose 90 mg/dL (70-105); Osmolality,Calculated 272 (280-300); Potassium 3.4 mEq/L (3.5-5.1); Sodium 133 mEq/L (136-145); eGFR For African Americans > 60 (> 60); eGFR For Non-African Americans > 60 (> 60)
[2019-08-18] MEDS: Nicotine 14 MG PATCH.TD24 TD SCH (09:16)
[2019-08-18] MEDS: Folic Acid 1 MG TABLET PO SCH (09:16)
[2019-08-18] MEDS: Thiamine (B-1) 100 MG TABLET PO SCH (09:16)
[2019-08-18] MEDS: Fluconazole 100 MG TABLET PO SCH (09:16)
[2019-08-18] MEDS: Multivit/Ca/Min/Fe/FA 1 TAB TABLET PO SCH (09:16)
[2019-08-18] MEDS: Vancomycin Oral Soln 125 MG/2.5 ML UDC PO SCH ×4 (09:17→20:08)
[2019-08-18 15:14] LABS: Magnesium 1.3 mg/dL (1.6-2.6); Phosphorous 4.9 mg/dL (2.7-4.5)
[2019-08-18 15:19] LABS: QuantiFERON NIL 0.02 IU/mL; QuantiFERON-TB Gold In-Tube NEGATIVE (Negative)
[2019-08-19] MEDS: Multivit/Ca/Min/Fe/FA 1 TAB TABLET PO SCH (08:25)
[2019-08-19] MEDS: Folic Acid 1 MG TABLET PO SCH (08:25)
[2019-08-19] MEDS: Thiamine (B-1) 100 MG TABLET PO SCH (08:25)
[2019-08-19] MEDS: Fluconazole 100 MG TABLET PO SCH (08:25)
[2019-08-19] MEDS: Nicotine 14 MG PATCH.TD24 TD SCH (08:26)
[2019-08-19] MEDS: Vancomycin Oral Soln 125 MG/2.5 ML UDC PO SCH (08:26)
[2019-08-19 08:47] LABS: Hematocrit 25.1 % (37.5-50.1); Hemoglobin 8.5 g/dL (12.9-16.9); Mean Corpuscular HGB Conc 33.9 g/dL (31.6-35.5); Mean Corpuscular Hemoglobin 35.7 pg (28.0-33.3); Mean Corpuscular Volume 105.5 fL (83.0-100.0); Mean Platelet Volume 10.3 fL (9.4-12.4); Platelet Count 135 K/mcL (140-400); Red Blood Count 2.38 M/mcL (4.19-5.50); Red Cell Distribution Width 13.9 % (11.5-14.5); White Blood Count 3.9 K/mcL (4.3-11.1)
[2019-08-19 09:09] LABS: BUN/Creatinine Ratio 6 (6-26); Blood Urea Nitrogen 5 mg/dL (8-23); Calcium 8.7 mg/dL (8.6-10.3); Carbon Dioxide 30 mEq/L (23-29); Chloride 97 mEq/L (98-107); Glucose 92 mg/dL (70-105); Magnesium 1.2 mg/dL (1.6-2.6); Osmolality,Calculated 275 (280-300); Phosphorous 5.3 mg/dL (2.7-4.5); Potassium 3.8 mEq/L (3.5-5.1); Sodium 134 mEq/L (136-145); eGFR For African Americans > 60 (> 60); eGFR For Non-African Americans > 60 (> 60)
[2019-08-19 09:38] VITALS: BP 119/74
== END 2019-08-19 11:05 | DRG 368 ==
LOC: 2ANU → SUATTDRO 08-14 11:22
PROVIDERS: ADMIT Internal Medicine; ATTEND Family Medicine

== ENCOUNTER 2020-07-31 13:59 | Inpatient (IN) ==
[2020-07-31] MEDS ORDERED: *HR* HYDROmorphone PF 0.5 MG/0.5 ML SYRINGE IVP PRN ×2 (14:51→23:35)
[2020-07-31] MEDS ORDERED: *HR* OxyCODONE Immed Rel 5 MG TABLET PO PRN ×2 (14:51→23:35)
[2020-07-31] MEDS ORDERED: CeFAZolin Syr 2,000MG/20 ML 2,000 MG/20 ML SYRINGE IVPB ONE (15:04)
[2020-07-31] MEDS ORDERED: Ringers Solution, Lactated 1,000 ML IVC SCH (15:15)
[2020-07-31] MEDS ORDERED: ceFAZolin 1,000 MG, Sodium Chloride IRRigation 1,000 ML IR ONE (17:30)
[2020-07-31] MEDS ORDERED: Heparin 1,000 UNITS/500 mL 0 ML ONE (18:13)
[2020-07-31] MEDS ORDERED: *HR* Succinylcholine 200 MG/10 ML VIAL IVP ONE (18:55)
[2020-07-31] MEDS ORDERED: Lidocaine -MPF 2% 2 ML VIAL ONE (18:55)
[2020-07-31] MEDS ORDERED: *HR* FentaNYL (PF) 100 MCG/2 ML VIAL ONE (18:55)
[2020-07-31] MEDS ORDERED: *HR* Propofol 200 MG/20 ML VIAL IVP ONE (18:55)
[2020-07-31] MEDS ORDERED: *HR* Phenylephrine 10 MG/ML VIAL ONE (18:58)
[2020-07-31] MEDS ORDERED: *HR* HYDROMORPHONE 2 MG/ML VIAL ONE (19:26)
[2020-07-31] MEDS ORDERED: *HR* Heparin 5,000 UNIT/ML VIAL ONE (21:07)
[2020-07-31] MEDS ORDERED: Ondansetron 4 MG/2 ML VIAL IVP PRN (23:35)
[2020-08-01] MEDS ORDERED: *HR* Labetalol 20 MG/4 ML SYRINGE IVP PRN ×2 (00:09→00:54)
[2020-08-01] MEDS ORDERED: *HR* Labetalol 20 MG/4 ML SYRINGE IVP ONE (00:11)
[2020-08-01] MEDS ORDERED: Ondansetron 4 MG/2 ML VIAL IVP PRN (00:54)
[2020-08-01] MEDS ORDERED: Acetaminophen 325 MG TABLET PO PRN (00:54)
[2020-08-01] MEDS ORDERED: Naloxone 0.4 MG/ML INJ IVP PRN (00:54)
[2020-08-01] MEDS ORDERED: *HR* HYDROcodone/Acet 5/325 mg TABLET PO PRN (00:54)
[2020-08-01] MEDS ORDERED: *HR* OxyCODONE Immed Rel 5 MG TABLET PO PRN (00:54)
[2020-08-01] MEDS: CeFAZolin 2 GM/120 ML BAG IVPB SCH ×3 (01:29→16:25)
[2020-08-01] MEDS ORDERED: 0.9 % Sodium Chloride 500 ML IVC ONE (01:58)
[2020-08-01] MEDS ORDERED: 0.9 % Sodium Chloride 1,000 ML ONE (01:59)
[2020-08-01 02:07] LABS: Basophils # 0.1 K/mcL (0.0-0.2); Basophils % 0.8 %; Eosinophils % 0.1 %; Hematocrit 33.2 % (37.5-50.1); Hemoglobin 11.6 g/dL (12.9-16.9); Immature Granulocytes % 0.5 % (0-4); Lymphocytes % 12.2 %; Mean Corpuscular HGB Conc 34.9 g/dL (31.6-35.5); Mean Corpuscular Hemoglobin 35.4 pg (28.0-33.3); Mean Corpuscular Volume 101.2 fL (83.0-100.0); Mean Platelet Volume 9.5 fL (9.4-12.4); Monocytes # 0.4 K/mcL (0.0-1.3); Monocytes % 5.5 %; Neutrophils # 6.5 K/mcL (1.6-8.9); Platelet Count 126 K/mcL (140-400); Red Blood Count 3.28 M/mcL (4.19-5.50); Red Cell Distribution Width 12.7 % (11.5-14.5); Segmented Neutrophils % 80.9 %
[2020-08-01 02:25] LABS: BUN/Creatinine Ratio 6 (6-26); Blood Urea Nitrogen 6 mg/dL (8-23); Calcium 8.6 mg/dL (8.6-10.3); Carbon Dioxide 17 mEq/L (23-29); Chloride 100 mEq/L (98-107); Glucose 61 mg/dL (70-105); Osmolality,Calculated 276 (280-300); Potassium 3.9 mEq/L (3.5-5.1); Sodium 135 mEq/L (136-145); eGFR For African Americans > 60 (> 60); eGFR For Non-African Americans > 60 (> 60)
[2020-08-01] MEDS: 0.9 % Sodium Chloride 1,000 ML IVC SCH ×2 (03:08→16:24)
[2020-08-01] MEDS: Folic Acid 1 MG TABLET PO SCH (08:51)
[2020-08-01] MEDS: Thiamine (B-1) 100 MG TABLET PO SCH (08:51)
[2020-08-01] MEDS: Fluconazole 100 MG TABLET PO SCH (08:51)
[2020-08-01] MEDS: Multivit/Ca/Min/Fe/FA 1 TAB TABLET PO SCH (08:51)
[2020-08-02 02:23] LABS: Hematocrit 27.9 % (37.5-50.1)
[2020-08-02 02:27] LABS: Hemoglobin 9.5 g/dL (12.9-16.9)
[2020-08-02] MEDS: Fluconazole 100 MG TABLET PO SCH (08:37)
[2020-08-02] MEDS: Thiamine (B-1) 100 MG TABLET PO SCH (08:38)
[2020-08-02] MEDS: Multivit/Ca/Min/Fe/FA 1 TAB TABLET PO SCH (08:38)
[2020-08-02] MEDS: 0.9 % Sodium Chloride 1,000 ML IVC SCH (08:38)
[2020-08-02] MEDS: Folic Acid 1 MG TABLET PO SCH (08:38)
[2020-08-02 14:57] VITALS: BP 124/87
== END 2020-08-02 16:25 | disposition home health service (06) | DRG 253 ==
LOC: SAMDAY 13:59 → 2NNU 08-01 00:37
PROVIDERS: ADMIT Surgery Vascular Surgery; ATTEND Surgery Vascular Surgery

== ENCOUNTER 2021-12-11 18:29 | Inpatient (IN) ==
[2021-12-11] MEDS ORDERED: Ondansetron 4 MG/2 ML VIAL IVP PRN (21:11)
[2021-12-11] MEDS ORDERED: Naloxone 0.4 MG/ML INJ IVP PRN (21:11)
[2021-12-11] MEDS ORDERED: Acetaminophen 325 MG TABLET PO PRN (21:11)
[2021-12-11] MEDS ORDERED: Melatonin 3 MG TABLET PO PRN (21:11)
[2021-12-11] MEDS ORDERED: *HR* LORazepam 2 MG/ML VIAL IVP PRN ×3 (21:15)
[2021-12-11 22:22] LABS: Magnesium 1.6 mg/dL (1.6-2.6)
[2021-12-11 22:33] LABS: Troponin I 0.05 ng/mL (< 0.04)
[2021-12-11] MEDS ORDERED: Perflutren Lipid Microsphere 1.3 ML in 0.9 % Sodium Chloride 8.7 ML IVP PRN (23:06)
[2021-12-12] MEDS: Thiamine (B-1) 100 MG, Folic Acid 1 MG, MVI, adult with vitamin K 10 ML in 0.9 % Sodi... IVPB SCH ×2 (00:38→17:50)
[2021-12-12] MEDS: *HR* Heparin 5,000 UNIT/ML VIAL SQ SCH ×2 (05:52→17:50)
[2021-12-12 08:01] LABS: Basophils # 0.1 K/mcL (0.0-0.2); Basophils % 0.7 %; Eosinophils # 0.1 K/mcL (0.0-0.6); Immature Granulocytes % 0.6 % (0-4); Lymphocytes # 1.2 K/mcL (0.6-4.6); Lymphocytes % 16.7 %; Mean Corpuscular HGB Conc 33.3 g/dL (31.6-35.5); Mean Corpuscular Hemoglobin 36.4 pg (28.0-33.3); Mean Corpuscular Volume 109.1 fL (83.0-100.0); Mean Platelet Volume 9.7 fL (9.4-12.4); Monocytes # 0.4 K/mcL (0.0-1.3); Monocytes % 5.8 %; Neutrophils # 5.4 K/mcL (1.6-8.9); Platelet Count 160 K/mcL (140-400); Red Blood Count 2.75 M/mcL (4.19-5.50); Red Cell Distribution Width 11.6 % (11.5-14.5); Segmented Neutrophils % 75.2 %; White Blood Count 7.1 K/mcL (4.3-11.1)
[2021-12-12 08:34] LABS: Alanine Aminotransferase 7 Units/L (7-52); Albumin 2.5 g/dL (3.5-5.7); Albumin/Globulin Ratio 1.3 (1.1-2.2); Alkaline Phosphatase 77 Units/L (34-104); Aspartate Amino Transferase 27 Units/L (13-39); BUN/Creatinine Ratio 19 (6-26); Blood Urea Nitrogen 15 mg/dL (8-23); Calcium 7.7 mg/dL (8.6-10.3); Carbon Dioxide 17 mEq/L (23-29); Chloride 100 mEq/L (98-107); Chol/HDL Ratio 3.3 (0-4.9); Cholesterol 78 mg/dL (< 200); Glucose 71 mg/dL (70-105); HDL Cholesterol 24 mg/dL (40-59); LDL Cholesterol,Calculated 31 mg/dL (< 100); Magnesium 1.6 mg/dL (1.6-2.6); Osmolality,Calculated 279 (280-300); Phosphorous 3.1 mg/dL (2.7-4.5); Potassium 3.4 mEq/L (3.5-5.1); Sodium 135 mEq/L (136-145); Total Protein 4.5 g/dL (6.4-8.9); Triglycerides 117 mg/dL (< 150); Troponin I 0.05 ng/mL (< 0.04); eGFR For African Americans > 60 (> 60); eGFR For Non-African Americans > 60 (> 60)
[2021-12-12] MEDS: Aspirin 81 MG TAB.CHEW PO SCH (10:20)
[2021-12-12] MEDS: Sodium Bicarbonate 75 MEQ in 0.45 % Sodium Chloride 1,000 ML IVC SCH (10:30)
[2021-12-12 10:31] LABS: Estimated Average Glucose 71 mg/dl; Hemoglobin A1C 4.1 %
[2021-12-12] MEDS: Nicotine 21 MG PATCH.TD24 TD SCH (14:17)
[2021-12-12] MEDS ORDERED: Ergocalciferol (VIT D2) 50,000 UNIT (1.25MG) CAP PO SCH (17:00)
[2021-12-12] MEDS ORDERED: Thiamine (B-1) 100 MG, Folic Acid 1 MG, MVI, adult with vitamin K 10 ML in 0.9 % Sodi... IVPB SCH (18:00)
[2021-12-12] MEDS: Magnesium Oxide 400 MG TABLET PO SCH (21:19)
[2021-12-12] MEDS: Gabapentin 100 MG CAPSULE PO SCH (21:19)
[2021-12-13 01:53] LABS: Basophils % 0.5 %; Eosinophils # 0.1 K/mcL (0.0-0.6); Eosinophils % 1.3 %; Hematocrit 26.8 % (37.5-50.1); Immature Granulocytes % 0.3 % (0-4); Lymphocytes # 1.1 K/mcL (0.6-4.6); Mean Corpuscular HGB Conc 33.6 g/dL (31.6-35.5); Mean Corpuscular Volume 107.2 fL (83.0-100.0); Mean Platelet Volume 10.1 fL (9.4-12.4); Monocytes # 0.5 K/mcL (0.0-1.3); Monocytes % 7.5 %; Neutrophils # 4.4 K/mcL (1.6-8.9); Platelet Count 146 K/mcL (140-400); Red Cell Distribution Width 11.5 % (11.5-14.5); Segmented Neutrophils % 72.4 %
[2021-12-13 02:13] LABS: Alanine Aminotransferase 7 Units/L (7-52); Albumin 2.5 g/dL (3.5-5.7); Albumin/Globulin Ratio 1.3 (1.1-2.2); Alkaline Phosphatase 84 Units/L (34-104); Aspartate Amino Transferase 26 Units/L (13-39); BUN/Creatinine Ratio 19 (6-26); Bilirubin,Total 0.9 mg/dL (0.3-1.0); Blood Urea Nitrogen 15 mg/dL (8-23); Calcium 7.6 mg/dL (8.6-10.3); Carbon Dioxide 24 mEq/L (23-29); Chloride 103 mEq/L (98-107); Glucose 101 mg/dL (70-105); Magnesium 1.5 mg/dL (1.6-2.6); Osmolality,Calculated 283 (280-300); Phosphorous 2.4 mg/dL (2.7-4.5); Potassium 3.8 mEq/L (3.5-5.1); Sodium 136 mEq/L (136-145); Total Protein 4.5 g/dL (6.4-8.9); eGFR For African Americans > 60 (> 60); eGFR For Non-African Americans > 60 (> 60)
[2021-12-13] MEDS: Sodium Bicarbonate 75 MEQ in 0.45 % Sodium Chloride 1,000 ML IVC SCH (05:16)
[2021-12-13] MEDS: *HR* Heparin 5,000 UNIT/ML VIAL SQ SCH ×2 (06:13→17:09)
[2021-12-13] MEDS: Cyanocobalamin (B-12) 1,000 MCG TABLET PO SCH (09:04)
[2021-12-13] MEDS: Folic Acid 1 MG TABLET PO SCH (09:04)
[2021-12-13] MEDS: amLODIPine 5 MG TABLET PO SCH (09:04)
[2021-12-13] MEDS: Aspirin 81 MG TAB.CHEW PO SCH (09:04)
[2021-12-13] MEDS: Gabapentin 100 MG CAPSULE PO SCH ×2 (09:04→21:02)
[2021-12-13] MEDS: Magnesium Oxide 400 MG TABLET PO SCH ×2 (09:04→21:02)
[2021-12-13] MEDS: Nicotine 21 MG PATCH.TD24 TD SCH (09:08)
[2021-12-13 10:20] LABS: Influenza A PCR Negative (Negative); Influenza B PCR Negative (Negative); Resp. Syncytial Virus PCR Negative (Negative)
[2021-12-13 10:31] LABS: SARS-CoV-2 by PCR (In House) Negative (Negative)
[2021-12-13] MEDS ORDERED: Iopamidol - 370 500 ML MLS IVP ONE (15:07)
[2021-12-13] MEDS: Thiamine (B-1) 100 MG, Folic Acid 1 MG, MVI, adult with vitamin K 10 ML in 0.9 % Sodi... IVPB SCH (17:13)
[2021-12-14] MEDS: *HR* Heparin 5,000 UNIT/ML VIAL SQ SCH (04:58)
[2021-12-14] MEDS: Gabapentin 100 MG CAPSULE PO SCH (08:25)
[2021-12-14] MEDS: Folic Acid 1 MG TABLET PO SCH (08:25)
[2021-12-14] MEDS: Nicotine 21 MG PATCH.TD24 TD SCH (08:25)
[2021-12-14] MEDS: Cyanocobalamin (B-12) 1,000 MCG TABLET PO SCH (08:25)
[2021-12-14] MEDS: amLODIPine 5 MG TABLET PO SCH (08:26)
[2021-12-14] MEDS: Aspirin 81 MG TAB.CHEW PO SCH (08:26)
[2021-12-14] MEDS: Magnesium Oxide 400 MG TABLET PO SCH (08:26)
[2021-12-14 11:39] VITALS: BP 115/83; TEMP 97.6; O2SAT 96
[2021-12-14 14:56] VITALS: PULSE 89
== END 2021-12-14 15:04 | DRG 948 ==
LOC: 3ANU → SUATTDRO 20:29
PROVIDERS: ADMIT Internal Medicine; ATTEND Registered Nurse

== ENCOUNTER 2022-02-17 18:02 | Inpatient (IN) ==
[2022-02-17] MEDS ORDERED: Ondansetron 4 MG/2 ML VIAL IVP PRN (23:49)
[2022-02-17] MEDS ORDERED: Naloxone 0.4 MG/ML INJ IVP PRN (23:49)
[2022-02-18] MEDS ORDERED: Acetaminophen 325 MG TABLET PO PRN (00:20)
[2022-02-18] MEDS ORDERED: Melatonin 3 MG TABLET PO PRN (00:20)
[2022-02-18] MEDS ORDERED: *HR* OxyCODONE Immed Rel 5 MG TABLET PO PRN (00:20)
[2022-02-18] MEDS ORDERED: D5% in Water 1,000 ML IVC PRN (00:21)
[2022-02-18] MEDS ORDERED: Dextrose Gel 15 GM/37.5 ML TUBE PO PRN ×2 (00:21)
[2022-02-18] MEDS ORDERED: *HR* Dextrose 50 % in Water (Syg) 50 ML SYRINGE IVP PRN (00:21)
[2022-02-18 01:16] LABS: Basophils % 0.2 %; Eosinophils # 0.1 K/mcL (0.0-0.6); Eosinophils % 0.4 %; Hemoglobin 10.6 g/dL (12.9-16.9); Immature Granulocytes % 0.6 % (0-4); Lymphocytes # 0.6 K/mcL (0.6-4.6); Lymphocytes % 3.1 %; Mean Corpuscular HGB Conc 33.1 g/dL (31.6-35.5); Mean Corpuscular Hemoglobin 32.3 pg (28.0-33.3); Mean Corpuscular Volume 97.6 fL (83.0-100.0); Mean Platelet Volume 10.4 fL (9.4-12.4); Monocytes # 1.2 K/mcL (0.0-1.3); Monocytes % 6.1 %; Platelet Count 165 K/mcL (140-400); Red Blood Count 3.28 M/mcL (4.19-5.50); Red Cell Distribution Width 13.3 % (11.5-14.5); Segmented Neutrophils % 89.6 %; White Blood Count 19.8 K/mcL (4.3-11.1)
[2022-02-18 01:24] LABS: Neutrophils # 17.7 K/mcL (1.6-8.9)
[2022-02-18 01:29] LABS: BUN/Creatinine Ratio 15 (6-26); Blood Urea Nitrogen 13 mg/dL (8-23); Calcium 10.6 mg/dL (8.6-10.3); Carbon Dioxide 24 mEq/L (23-29); Chloride 105 mEq/L (98-107); Glucose 92 mg/dL (70-105); Magnesium 1.6 mg/dL (1.6-2.6); Osmolality,Calculated 280 (280-300); Phosphorous 3.7 mg/dL (2.7-4.5); Potassium 3.9 mEq/L (3.5-5.1); Sodium 135 mEq/L (136-145)
[2022-02-18 01:32] LABS: INR 1.9; Prothrombin Time 20.9 Seconds (9.4-12.1)
[2022-02-18 03:41] LABS: Bilirubin,Urine Negative (Negative); Blood,Urine Negative (Negative); Clarity,Urine Clear (Clear); Color,Urine Yellow (Yellow); Glucose,Urine (UA) Normal (Normal); Ketones,Urine 10 mg/dL (Negative); Leukocyte Esterase,Urine Negative (Negative); Nitrite,Urine Negative (Negative); Protein,Urine Trace mg/dL (Neg-Trace); Specific Gravity,Urine > 1.030 (1.010-1.025); Urobilinogen,Urine Normal (Normal)
[2022-02-18] MEDS ORDERED: D5% in 0.45% NACL w KCl 20 MEQ/1,000 ML MLS IVC SCH (05:00)
[2022-02-18 06:19] LABS: Albumin 2.2 g/dL (3.5-5.7); Bilirubin,Direct 0.4 mg/dL (0.0-0.2); Bilirubin,Indirect 0.5 mg/dL (0.0-1.0); Bilirubin,Total 0.9 mg/dL (0.3-1.0); Globulin 2.2 g/dL (2.4-3.5); Total Protein 4.4 g/dL (6.4-8.9)
[2022-02-18] MEDS ORDERED: Piperacillin/Tazobactam 3.375 GM in 0.9 % Sodium Chloride Mini Bag 100 ML IVPB SCH (08:00)
[2022-02-18 10:14] LABS: Adenovirus Not Detected (Not Detect); Bordetella Pertussis Not Detected (Not Detect); Chlamydophila pneumoniae Not Detected (Not Detect); Coronavirus 229E Not Detected (Not Detect); Coronavirus HKU1 Not Detected (Not Detect); Coronavirus NL63 Not Detected (Not Detect); Coronavirus OC43 Not Detected (Not Detect); Human Metapneumovirus Not Detected (Not Detect); Human Rhinovirus/Enterovirus Not Detected (Not Detect); Influenza A Subtype 2009 H1 Not Detected (Not Detect); Influenza B Not Detected (Not Detect); Mycoplasma pneumoniae Not Detected (Not Detect); Parainfluenza Virus 1 Not Detected (Not Detect); Parainfluenza Virus 2 Not Detected (Not Detect); Parainfluenza Virus 3 Not Detected (Not Detect); Parainfluenza Virus 4 Not Detected (Not Detect); Respiratory Syncytial Virus Not Detected (Not Detect); SARS-CoV-2 Not Detected (Not Detect)
[2022-02-18 10:53] VITALS: TEMP 98.4
[2022-02-18 11:56] LABS: Lactate Dehydrogenase 83 Units/L (140-271); Total Protein 4.5 g/dL (6.4-8.9)
[2022-02-18] MEDS ORDERED: *HR* FentaNYL (PF) 100 MCG/2 ML VIAL ONE (12:44)
[2022-02-18] MEDS ORDERED: *HR* Midazolam HCl 5 MG/5 ML VIAL IVP ONE (12:44)
[2022-02-18] MEDS ORDERED: Lidocaine Viscous Oral Soln 15 ML SOLUTION ONE (12:59)
[2022-02-18] MEDS ORDERED: Lidocaine -MPF 2% 2 ML VIAL IH ONE (13:14)
[2022-02-18] MEDS ORDERED: Tetracaine/Benzocaine/Butamben 1 SPRAY AEROSOL MM ONE (13:14)
[2022-02-18] MEDS ORDERED: Lidocaine Viscous Oral Soln 15 ML SOLUTION MM ONE (13:14)
[2022-02-18] MEDS ORDERED: D5% in 0.45% NACL 1,000 ML IVC SCH (14:45)
[2022-02-18 16:53] LABS: RBC,Peritoneal Fluid < 2000 RBC/mcL
[2022-02-18] MEDS: Insulin LISPRO 300 UNITS/3 ML VIAL SUBQ SCH (16:55)
[2022-02-18 17:25] LABS: Glucose,Peritoneal Fluid 96 mg/dL (No Ref Range); LDH,Peritoneal Fluid < 25 Units/L (No Ref Range); Total Protein,Peritoneal Fluid < 2.0 g/dL
[2022-02-18 19:05] LABS: Appearance of Peritoneal Fl CLEAR (Clear); Basophils,Peritoneal Fluid 0 %; Eosinophils,Peritoneal Fluid 0 %
[2022-02-18] MEDS: Piperacillin/Tazobactam 3.375 GM in 0.9 % Sodium Chloride Mini Bag 100 ML IVPB SCH (19:35)
[2022-02-18] MEDS ORDERED: Mirtazapine 15 MG TABLET PO SCH (21:00)
[2022-02-18] MEDS: Apixaban 5 MG TABLET PO SCH (21:26)
[2022-02-18] MEDS: Lactulose Oral Soln 20 GM/30 ML UDC PO SCH (21:26)
[2022-02-19] MEDS: Insulin LISPRO 300 UNITS/3 ML VIAL SUBQ SCH ×2 (00:42→05:55)
[2022-02-19] MEDS: Piperacillin/Tazobactam 3.375 GM in 0.9 % Sodium Chloride Mini Bag 100 ML IVPB SCH (03:21)
[2022-02-19 06:40] LABS: Basophils % 0.1 %; Hematocrit 27.5 % (37.5-50.1); Hemoglobin 9.4 g/dL (12.9-16.9); Immature Granulocytes % 1.1 % (0-4); Immature Platelets 6.5 % (1.1-6.1); Lymphocytes # 0.7 K/mcL (0.6-4.6); Lymphocytes % 4.1 %; Mean Corpuscular HGB Conc 34.2 g/dL (31.6-35.5); Mean Corpuscular Hemoglobin 32.6 pg (28.0-33.3); Mean Corpuscular Volume 95.5 fL (83.0-100.0); Mean Platelet Volume 10.9 fL (9.4-12.4); Monocytes # 0.8 K/mcL (0.0-1.3); Monocytes % 4.8 %; Neutrophils # 14.6 K/mcL (1.6-8.9); Platelet Count 113 K/mcL (140-400); Red Blood Count 2.88 M/mcL (4.19-5.50); Red Cell Distribution Width 13.2 % (11.5-14.5); Segmented Neutrophils % 89.9 %; White Blood Count 16.3 K/mcL (4.3-11.1)
[2022-02-19 06:41] VITALS: BP 105/70; PULSE 70; O2SAT 92
[2022-02-19 06:57] LABS: BUN/Creatinine Ratio 18 (6-26); Blood Urea Nitrogen 15 mg/dL (8-23); Calcium 10.2 mg/dL (8.6-10.3); Carbon Dioxide 23 mEq/L (23-29); Chloride 106 mEq/L (98-107); Glucose 115 mg/dL (70-105); Magnesium 1.4 mg/dL (1.6-2.6); Osmolality,Calculated 282 (280-300); Phosphorous 3.9 mg/dL (2.7-4.5); Sodium 135 mEq/L (136-145)
[2022-02-19] MEDS ORDERED: Pantoprazole 40 MG VIAL IVP SCH (09:00)
[2022-02-19 09:03] LABS: % Iron Saturation 19 % (20-55); Iron 27 mcg/dL (65-175); Transferrin 101 mg/dL (203-362)
[2022-02-19 09:20] LABS: Ferritin 1005 ng/mL (20-250)
[2022-02-19] MEDS: Lactulose Oral Soln 20 GM/30 ML UDC PO SCH (09:27)
[2022-02-19] MEDS: Apixaban 5 MG TABLET PO SCH (09:27)
[2022-02-21 01:17] LABS: Fluid Source for Albumin PERITONEAL FL
== END 2022-02-19 13:20 | disposition hospice, inpatient (51) | DRG 871 ==
LOC: 3ANU 21:49 → SUATTDRO 21:49
PROVIDERS: ADMIT Student in an Organized Health Care Education/Training Program; ATTEND Internal Medicine
PROC: ENDOBRF (2022-02-18 11:10)